=== PATIENT | female | born 1960 | race Caucasian/White ===

== ENCOUNTER 2017-09-22 14:51 | Inpatient (IN) | payer OTHER, SELFPAY ==
[2017-09-22 16:06] VITALS: BP 130/66; PULSE 103; RESP 18; TEMP 36.9; O2SAT 96; BMI 41.1
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
[2017-09-22] MEDS: oxyCODONE 5 MG Tablet PO (17:43)
[2017-09-22] MEDS: fentaNYL 25 MCG Patch TRANSDERM. (18:31)
--- NOTE | 2017-09-22 19:59 | NURSING ---
dr Hooper, Hospitalist, [place] [facility]
[2017-09-22 20:05] VITALS: BP 120/64; PULSE 94; RESP 18; TEMP 36.4; O2SAT 96
[2017-09-22 20:14] VITALS: BMI 41.1
[2017-09-22 20:18] VITALS: O2SAT 96
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
[2017-09-22] MEDS: Heparin Injection 5,000 UNITS/ML Syringe 5000 UNITS SC (20:34)
[2017-09-22] MEDS: Docusate Sodium 100 MG Capsule PO (20:35)
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
[2017-09-23] MEDS: oxyCODONE 5 MG Tablet PO ×4 (01:03→22:37)
[2017-09-23] MEDS: Heparin Injection 5,000 UNITS/ML Syringe 5000 UNITS SC ×3 (05:15→21:36)
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
[2017-09-23 06:07] LABS: Absolute Lymphocyte Count 2.31 X10^3/ul (0.83-4.51); Absolute Neutrophil Count 4.5 X10^3/uL (2.0-7.7); Basophil# 0.04 X10^3/uL; Basophil% 0.5 % (0-1); Eosinophil# 0.19 X10^3/uL; Eosinophils% 2.4 % (0-5); Hematocrit 32.3 % (37-47); Hemoglobin 10.5 g/dl (12.0-15.0); Lymphocyte # 2.31 X10^3/ul (4.0); Lymphocyte % 29.1 % (19-41); Mean Corp Hgb Conc 32.5 g/gl (32-36); Mean Corpuscular Hgb 29.6 pg (27.0-32.0); Mean Platelet Vol. 11.6 fl (6.2-12.0); Monocyte% 10.1 % (0-10); Neutrophil # 4.46 X10^3/uL (2.7-7.7); Neutrophil % 56.1 % (47-70); Platelet Count 234 K/mm3 (150-450); RBC Distribution Width CV 12.5 % (11.6-14.6); RBC Distribution Width SD 39.5 fl (35.1-43.9); Red Blood Count 3.55 M/mm3 (4.2-5.4); White Blood Count 7.9 K/mm3 (4.4-11.0)
[2017-09-23 06:22] LABS: POSITIVE COUNT NO; POSITIVE DIFFERENTIAL NO; POSITIVE MORPHOLOGY NO
[2017-09-23 06:25] LABS: ALB/GLOB Ratio 0.5 RATIO (0.9-2.4); AST(SGOT) 20 U/L (15-37); Alanine Aminotransfer ALT/SGPT 20 U/L (12-78); Albumin, Serum 2.2 g/dL (3.4-5.0); Alkaline Phosphatase 57 U/L (45-117); Anion Gap 9 (5-15); BUN 12 mg/dL (7-18); BUN/Creat Ratio 19.8 RATIO (10-20); Calcium,Total 8.7 mg/dL (8.5-10.1); Chloride 99 mmol/L (98-107); Creatinine, Serum 0.61 mg/dL (0.55-1.02); EST Glomerular Filtration Rate 107 mL/min (>60); Est Glom Filt Rate - Afr Amer 130 mL/min (>60); Estimated Creatinine Clearance 78.54 ml/min; Globulin 4.1 g/dL (2.2-4.2); Glucose 115 mg/dL (70-110); Magnesium 1.7 mg/dL (1.6-2.6); Phosphorus 2.8 mg/dL (2.5-4.9); Potassium 3.5 mmol/L (3.5-5.1); Protein, Total 6.3 g/dL (6.4-8.2); Sodium Level 139 mmol/L (136-145)
[2017-09-23 08:29] VITALS: O2SAT 96
[2017-09-23 09:05] VITALS: BP 118/72; PULSE 96; RESP 17; TEMP 36.4; O2SAT 96
[2017-09-23] MEDS: Divalproex (ER) 250 MG Tablet 1250 MG PO (09:08)
[2017-09-23] MEDS: Senna/Docusate Sodium 1 Tablet 2 TABLET PO ×2 (09:09→21:35)
[2017-09-23] MEDS: Polyethylene Glycol 3350 17 GM PACKET PO (09:09)
[2017-09-23] MEDS: Multivitamins,Ther W-Minerals Tablet 1 TABLET PO (09:09)
[2017-09-23] MEDS: Aspirin 81 MG TAB.CHEW PO (09:09)
[2017-09-23] MEDS: ESTROGENS, CONJUGATED 0.45 MG TABLET PO (10:14)
--- NOTE | 2017-09-23 10:45 | NURSING ---
Dr. Soriano aware of CXR report, no sob noted, oxygen is ordered at all times due to history of right pneumothorax, afebrile. will come assess patient.
--- NOTE | 2017-09-23 14:45 | NURSING ---
leave wrap and splint in place do not change.
--- NOTE | 2017-09-23 17:09 | REHABEVAL_ITS ---
Admission Information Status Changes from Prescreening?: No changes Identified Actual Problem List:: Skin Intergrity, Pain, ALteration in Cmfrt, Mobility Impaired, Self Care Deficit, Ineffect.D/C Plan r/t Psy Potential Problem List:: DVT, Bleeding, Infection, UTI, Aspiration, Falls, Skin Integrity, Depression Risk of Complications DVT: LMWH, SHRAVAN Hose, Sequential Compression Device Bleeding: Monitor Lab Values, Nursing to Teach Precautions for anti-coagulation therapy., Wound, if applicable, to be assessed every shift., Stroke patients assessed for lethargy or change in status. Infection: Clinical Staff to Monitor for S/S of infection:, S/S of infection include fever, redness, warmth, etc. Urinary Tract Infection: Monitor for frequency, burning, discomfort, or incontinence., Nursing will obtain urine sample for urinalysis and C&S when ordered. Aspiration: Clinical staff will monitor for coughing, drooling, congestion., Speech will evaluate swallowing and dsyphasia., Nursing will monitor patient swallowing during meals. Falls: Patient will be evaluated for Fall Precautions, Patient will be placed on Fall Precautions as indicated per protocol. Skin Breakdown: Nursing will assess skin daily using assessment tool., Nursing will place on Skin Breakdown Precautions as indicated. Pain: Clinical staff will assess patient's pain level per protocol., Medications will be given, if needed, and the pain level reassessed., Other methods: Massage, distraction, decrease stimulus, etc. used PRN. Plan of Care Patient requires physician specializing in physical medicine and rehab oversight to provide close medical supervision of rehab issues including: Pain Management, Sleep Problems, Bowel and Bladder, Medical and co-morbidity Management, DVT prophylaxis, Rehabilitation Leadership, Coordination of treatment team Patient needs Physical Therapy: For a minimum of 1 hour, At least 5 out of 7 days Patient needs Physical Therapy to improve:: Mobility, Mobility, Mobility, Strengthening, Transfers, Stretching, ROM, Endurance, Stairs, Gait, Balance Patient needs Occupational Therapy: For a minimum of 1 hour, At least 5 out of 7 days Patient needs Occupational Therapy to improve ADL's incl.: Eating, Grooming, Bathing, Dressing, Toileting, Toilet transfers, Community Reintegration, Higher functioning activities, Household tasks, Adaptive Equipment, Splinting, Other activities as determined Patient requires 24/ Rehabilitation Nursing for: Pain Issues, Identifying and preventing risk factors, Monitoring and reporting current medical conditions, Assisting with ambulation, transfer, and all ADL's, Teaching patients about disease process and medications, Family teaching, Providing safe environment, Bowel and Bladder Issues, Skin integrity, Medication Management Patient needs Technical Sales Director/ Case Management for: Discharge Planning, Arranging Home Equipment or Services, Family Interventions Patient needs Dietary and Nutrition Services for: Adequate Nutrition, Nutritional Supplements, Nutritional Education Goals Patient will remain: free from falls, or injury at time of discharge. Patient will perform bed mobility at: MOD I level of assist. Patient will complete transfers from bed to chair at: MOD I level of assist. Patient will ambulate: 100 feet, with MOD I assist, with LRD Patient will complete upper body dressing at: MOD I level of assist. Patient will complete lower body dressing at: MOD I level of assist. Patient will complete toileting at: MOD I level of assist. Patient will perform bathing at: MOD I level of assist. Patient will complete grooming at: MOD I level of assist. Patient will complete home management skills at: MOD I level of assist. Patient will achieve: 12 stairs, at MOD I assist Patient will have pain level of: of 3 or less Patient's skin will: remain intact, free from infection. Patient will receive: adequate nutrition. Discharge Planning Pt Prognosis for Sig. Practical Improv. w/in Reasonable Time: Good Anticipated D/C Destination: Home with Outpt Therapy Was Preadmission Assessment Accurate?: Yes
[2017-09-23 19:53] VITALS: BP 159/80; PULSE 89; RESP 16; TEMP 36.6; O2SAT 100
[2017-09-23] MEDS: Magnesium Hydroxide 30 ML UDC PO (20:49)
[2017-09-24] MEDS: oxyCODONE 5 MG Tablet PO ×3 (04:41→20:36)
[2017-09-24] MEDS: Bisacodyl 10 MG Suppository RECTAL (04:45)
[2017-09-24] MEDS: Heparin Injection 5,000 UNITS/ML Syringe 5000 UNITS SC ×2 (05:49→14:17)
[2017-09-24] MEDS: Senna/Docusate Sodium 1 Tablet 2 TABLET PO (08:57)
[2017-09-24] MEDS: ESTROGENS, CONJUGATED 0.45 MG TABLET PO (08:57)
[2017-09-24] MEDS: Aspirin 81 MG TAB.CHEW PO (08:57)
[2017-09-24] MEDS: Divalproex (ER) 250 MG Tablet 1250 MG PO (08:57)
[2017-09-24] MEDS: Polyethylene Glycol 3350 17 GM PACKET PO (08:57)
[2017-09-24] MEDS: Multivitamins,Ther W-Minerals Tablet 1 TABLET PO (08:57)
[2017-09-24 09:00] VITALS: BP 118/70; PULSE 89; RESP 16; TEMP 36.7; O2SAT 94
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
[2017-09-24 13:10] VITALS: O2SAT 97
[2017-09-24 13:23] VITALS: O2SAT 97
[2017-09-24] MEDS: Acetaminophen 325 MG Tablet 650 MG PO (20:37)
[2017-09-24 21:00] VITALS: BP 107/55; PULSE 90; RESP 18; TEMP 36.4; O2SAT 94
[2017-09-25] MEDS: Acetaminophen 325 MG Tablet 650 MG PO (05:58)
[2017-09-25] MEDS: oxyCODONE 5 MG Tablet PO ×2 (05:59→13:19)
[2017-09-25 06:30] VITALS: O2SAT 94
[2017-09-25 08:23] VITALS: BP 115/62; PULSE 80; RESP 16; TEMP 36.5; O2SAT 94
--- NOTE | 2017-09-25 08:49 | RAD_ITS ---
STUDY: X-RAY - RIGHT ANKLE REASON FOR EXAM: Female, 57 years old. Swelling and discoloration. No known injury. TECHNIQUE: 3 view(s) of the ankle. COMPARISON: None. FINDINGS: Normal visualized distal tibia and fibula. Normal medial and lateral malleoli. Normal tibiotalar articulation and ankle mortise. Normal visualized talus and calcaneus. The visualized subtalar, talonavicular, calcaneocuboid and tarsal articulations are normal. Diffuse soft tissue swelling. RAD/Ankle min 3 Views IMPRESSION: Diffuse soft tissue swelling. Electronically Signed: Sam Saldana MD at 10:41 EST Tel [phone], Service support ,
[2017-09-25] MEDS: Divalproex (ER) 250 MG Tablet 1250 MG PO (09:04)
[2017-09-25] MEDS: Senna/Docusate Sodium 1 Tablet 2 TABLET PO (09:04)
[2017-09-25] MEDS: Multivitamins,Ther W-Minerals Tablet 1 TABLET PO (09:04)
[2017-09-25] MEDS: Polyethylene Glycol 3350 17 GM PACKET PO (09:04)
[2017-09-25] MEDS: Aspirin 81 MG TAB.CHEW PO (09:05)
[2017-09-25] MEDS: ESTROGENS, CONJUGATED 0.45 MG TABLET PO (09:05)
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
[2017-09-25] MEDS: fentaNYL 25 MCG Patch TRANSDERM. (17:05)
[2017-09-25 19:57] VITALS: BP 118/67; PULSE 90; RESP 18; TEMP 36.3; O2SAT 95
--- NOTE | 2017-09-26 01:17 | NURSING ---
pt refused flu shot
[2017-09-26] MEDS: oxyCODONE 5 MG Tablet PO ×3 (06:54→20:34)
[2017-09-26] MEDS: Aspirin 81 MG TAB.CHEW PO (08:06)
[2017-09-26] MEDS: Multivitamins,Ther W-Minerals Tablet 1 TABLET PO (08:06)
[2017-09-26] MEDS: ESTROGENS, CONJUGATED 0.45 MG TABLET PO (08:06)
[2017-09-26] MEDS: Divalproex (ER) 250 MG Tablet 1250 MG PO (08:06)
[2017-09-26 08:36] VITALS: BP 140/73; PULSE 89; RESP 16; TEMP 36.4; O2SAT 95
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
[2017-09-26 19:23] VITALS: BP 115/64; PULSE 85; RESP 24; TEMP 36.7; O2SAT 94
[2017-09-27] MEDS: oxyCODONE 5 MG Tablet PO ×3 (05:39→20:59)
[2017-09-27] MEDS: Divalproex (ER) 250 MG Tablet 1250 MG PO (07:33)
[2017-09-27] MEDS: Multivitamins,Ther W-Minerals Tablet 1 TABLET PO (07:33)
[2017-09-27] MEDS: Aspirin 81 MG TAB.CHEW PO (07:33)
[2017-09-27] MEDS: ESTROGENS, CONJUGATED 0.45 MG TABLET PO (07:34)
[2017-09-27 07:40] VITALS: BP 124/69; PULSE 80; RESP 16; TEMP 36.4; O2SAT 95
[2017-09-27 15:30] VITALS: O2SAT 95
[2017-09-27 19:31] VITALS: BP 109/61; PULSE 87; RESP 16; TEMP 36.8; O2SAT 96
[2017-09-27 19:39] VITALS: O2SAT 95
[2017-09-28] MEDS: oxyCODONE 5 MG Tablet PO ×3 (06:04→20:43)
[2017-09-28 08:28] VITALS: BP 102/67; PULSE 105; RESP 17; TEMP 36.5; O2SAT 91
[2017-09-28] MEDS: Multivitamins,Ther W-Minerals Tablet 1 TABLET PO (08:29)
[2017-09-28] MEDS: Divalproex (ER) 250 MG Tablet 1250 MG PO (08:30)
[2017-09-28] MEDS: ESTROGENS, CONJUGATED 0.45 MG TABLET PO (08:30)
[2017-09-28] MEDS: Aspirin 81 MG TAB.CHEW PO (08:30)
[2017-09-28 09:36] VITALS: PULSE 105
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
--- NOTE | 2017-09-28 13:15 | CASEMGMT ---
Insurance Clinical information faxed. Pending continued stay approval at this time. Auth#[id number] Lilibeth ALVAREZ, SENIOR LINUX SYSTEMS ADMINISTRATOR
--- NOTE | 2017-09-28 13:16 | CASEMGMT ---
Team meeting held. Patient present as well as patient family. No discharge date set at this time. Patient to continue with further care and treatment on the Inpatient Rehab Unit at this time. Patient aware of insurance update due on this day and that continued stay approval is not guaranteed. Patient plans to discharge home with spouse at time of discharge. Patient spouse would not be able to manage patient needs within the home at this time. Support given. Will continue to follow. Lilibeth ALVAREZ, MEDICAL OFFICE COORDINATOR
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
[2017-09-28] MEDS: fentaNYL 25 MCG Patch TRANSDERM. (16:56)
[2017-09-28 19:58] VITALS: BP 120/65; PULSE 90; RESP 17; TEMP 36.8; O2SAT 93
[2017-09-28 22:00] VITALS: O2SAT 93
[2017-09-29] MEDS: Enoxaparin 40 MG/0.4 ML Syringe SC (06:41)
[2017-09-29] MEDS: oxyCODONE 5 MG Tablet PO (06:50)
[2017-09-29 07:00] VITALS: O2SAT 93
[2017-09-29] MEDS: ESTROGENS, CONJUGATED 0.45 MG TABLET PO (08:12)
[2017-09-29] MEDS: Multivitamins,Ther W-Minerals Tablet 1 TABLET PO (08:12)
[2017-09-29] MEDS: Divalproex (ER) 250 MG Tablet 1250 MG PO (08:12)
[2017-09-29] MEDS: Aspirin 81 MG TAB.CHEW PO (08:15)
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
[2017-09-29 09:40] VITALS: BP 122/67; PULSE 92; RESP 18; TEMP 36.4; O2SAT 93
[2017-09-29 21:00] VITALS: BP 120/63; PULSE 90; RESP 20; TEMP 36.6; O2SAT 3; O2SAT 95
--- NOTE | 2017-09-30 03:19 | NURSING ---
Reviewed and agree with DOG DAYCARE PROVIDER documentation.
[2017-09-30] MEDS: Enoxaparin 40 MG/0.4 ML Syringe SC (05:16)
[2017-09-30] MEDS: oxyCODONE 5 MG Tablet PO (05:18)
[2017-09-30] MEDS: Divalproex (ER) 250 MG Tablet 1250 MG PO (07:58)
[2017-09-30] MEDS: Aspirin 81 MG TAB.CHEW PO (07:58)
[2017-09-30] MEDS: Multivitamins,Ther W-Minerals Tablet 1 TABLET PO (07:58)
[2017-09-30] MEDS: ESTROGENS, CONJUGATED 0.45 MG TABLET PO (07:59)
[2017-09-30 09:48] VITALS: BP 115/63; PULSE 103; RESP 17; TEMP 36.4; O2SAT 97
--- NOTE | 2017-09-30 10:06 | PCM.PN.NEU ---
Patient Problems: Active and Suspected Problems Avulsion fracture of left ankle (Acute) Pneumothorax, right (Acute) Multiple fractures of ribs, right side, sequela (Acute) Subjective: Seen during Occupational therapy session. Denies any shortness of breath. Pain is well managed on current medications. - Physical Exam General: Alert, Oriented x3, Cooperative HEENT: Atraumatic, PERRLA, EOMI, Normocephalic Neck: Supple, No JVD, Negative Carotid Bruits Lungs: Clear to auscultation, Normal air movement Cardiovascular: Regular rate, No murmurs Abdomen: Bowel Sounds Present, Soft, Non Tender Extremities: No edema, Capillary Refill Less than 3 Seconds Skin: No rashes, No breakdown Musculoskeletal: No Tenderness to Palpation of Joints or Extremities Neurological: Cranial nerves II-XII grossly intact Psych/Mental Status: Normal Affect, Appropriate Vital Signs Temp Pulse Resp BP Pulse Ox 97.5 F L 103 H 17 115/63 97 09/30/17 09:48 09/30/17 09:48 09/30/17 09:48 09/30/17 09:48 09/30/17 09:48 Oxygen Flow Rate 3 Oxygen Delivery Method Nasal Cannula Weight: 104.4 kg Body Mass Index (BMI) 41.1 Intake and Output for Last 24 Hours 09/28/17 09/29/17 09/30/17 23:59 23:59 23:59 Intake Total 240 / 240 720 / 720 120 / 120 Balance 240 / 240 720 / 720 120 / 120 Active Medications Acetaminophen (Tylenol) 650 mg PO Q6H PRN PRN PRN Reason: Mild Pain (0-3/10)/Headache Last Admin: 09/25/17 05:58 Dose: 650 mg Aspirin (Aspirin, Baby) 81 mg PO DAILY@0800 [facility] Last Admin: 09/30/17 07:58 Dose: 81 mg Bisacodyl (Dulcolax) 10 mg RECTAL .PRN X 1 PRN PRN Reason: Constipation Last Admin: 09/24/17 04:45 Dose: 10 mg Divalproex Sodium (Depakote Er) 1,250 mg PO DAILY@0800 [facility] Last Admin: 09/30/17 07:58 Dose: 1,250 mg Enoxaparin Sodium (Lovenox) 40 mg SC DAILY@0600 [facility] Last Admin: 09/30/17 05:16 Dose: 40 mg Estrogens Conjugated (Premarin) 0.45 mg PO DAILY [facility] Last Admin: 09/30/17 07:59 Dose: 0.45 mg Fentanyl (Duragesic) 25 mcg TRANSDERM. Q3D [facility] Last Admin: 09/28/17 16:56 Dose: 25 mcg Lorazepam (Ativan) 0.5 mg PO QHS PRN PRN PRN Reason: Insomnia Magnesium Hydroxide (Milk Of Magnesia) 30 ml PO .PRN X 1 PRN PRN Reason: Constipation Last Admin: 09/23/17 20:49 Dose: 30 ml Multivitamins/Minerals (Multivitamin With Minerals) 1 tablet PO DAILY@0800 [facility] Last Admin: 09/30/17 07:58 Dose: 1 tablet Nutritional Formula (Lactose Free) (Ensure Enlive) 120 ml PO 4X/DAY [facility] Last Admin: 09/30/17 07:59 Dose: Not Given Oxycodone HCl (Oxyir) 5 - 10 mg PO Q6H PRN PRN PRN Reason: PAIN Last Admin: 09/30/17 05:18 Dose: 10 mg Polyethylene Glycol (Miralax) 17 gm PO DAILY [facility] Last Admin: 09/30/17 07:59 Dose: Not Given Senna/Docusate Sodium (Senokot-S, Anna-Colace) 2 tablet PO BID [facility] Last Admin: 09/30/17 07:59 Dose: Not Given Assessment/Plan Active and Suspected Problems Avulsion fracture of left ankle (Acute) Pneumothorax, right (Acute) Multiple fractures of ribs, right side, sequela (Acute) Debility status post ORIF to left ankle avulsion fracture with bone and skin grafting. Complicated by by Right Pneumothorax, and Multiple Right sided rib fx 4 through 8. Goal of rehab is jain of prior level of functional independence. Plan: - Physical therapy for gait and balance - Occupational Therapy for ADLs - As needed analgesics - Bowel protocol - DVT prophylaxis: Lovenox 40mg daily ASA, SCD's right leg, and Lance hoses right leg - Hx of Hormone replacement therapy -> Continue home dose of Premarin - Hx of Seizures -> continue Depakote ER 1250mg Daily - Multiple Right Rib Fractures (4-8) -> IS every hour while awake, Lidoderm patch to affected area - Right Pneumothorax -> Keep on O2, 2 Liters [place]. at all times, Maintain O2 SATs greater than 95% - Incision Site -> Dressing is C/D/I - Right ankle pain => 3 view X-ray of ankle => shows Diffuse soft tissue swelling, do R.I.C.E. therapy on the area. - Weight bearing status => Non weight bearing on the Left lower extremity.
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
[2017-09-30 16:19] VITALS: O2SAT 99
--- NOTE | 2017-09-30 16:48 | CASEMGMT ---
Insurance Continued stay approved with next update due on 10/05/17 and last cover day being 10/06/17. Auth#[id number] Lilibeth ALVAREZ, FILTERS ASSEMBLER
[2017-09-30 20:10] VITALS: BP 114/61; PULSE 86; RESP 20; TEMP 36.6; O2SAT 95
[2017-09-30] MEDS: Acetaminophen 325 MG Tablet 650 MG PO (21:14)
[2017-10-01] MEDS: oxyCODONE 5 MG Tablet PO (05:18)
[2017-10-01] MEDS: Enoxaparin 40 MG/0.4 ML Syringe SC (05:20)
[2017-10-01] MEDS: Divalproex (ER) 250 MG Tablet 1250 MG PO (07:44)
[2017-10-01] MEDS: Multivitamins,Ther W-Minerals Tablet 1 TABLET PO (07:45)
[2017-10-01] MEDS: Aspirin 81 MG TAB.CHEW PO (07:45)
[2017-10-01] MEDS: ESTROGENS, CONJUGATED 0.45 MG TABLET PO (07:46)
[2017-10-01 09:52] VITALS: BP 123/67; PULSE 77; RESP 16; TEMP 36.4; O2SAT 96
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
[2017-10-01] MEDS: fentaNYL 25 MCG Patch TRANSDERM. (16:47)
[2017-10-01] MEDS: Acetaminophen 325 MG Tablet 650 MG PO (21:29)
[2017-10-01 21:49] VITALS: BP 123/61; PULSE 86; RESP 14; TEMP 36.4; O2SAT 93
[2017-10-02] MEDS: Enoxaparin 40 MG/0.4 ML Syringe SC (05:16)
[2017-10-02] MEDS: Divalproex (ER) 250 MG Tablet 1250 MG PO (08:19)
[2017-10-02] MEDS: Aspirin 81 MG TAB.CHEW PO (08:19)
[2017-10-02] MEDS: Multivitamins,Ther W-Minerals Tablet 1 TABLET PO (08:19)
[2017-10-02] MEDS: oxyCODONE 5 MG Tablet PO (08:19)
[2017-10-02] MEDS: ESTROGENS, CONJUGATED 0.45 MG TABLET PO (08:20)
[2017-10-02 09:46] VITALS: BP 119/64; PULSE 79; RESP 18; TEMP 36.5; O2SAT 79
[2017-10-02 13:10] VITALS: O2SAT 90
--- NOTE | 2017-10-02 14:30 | CASEMGMT ---
Social Work Staff reporting that patient has been tearful. This social worker assistant speaking with patient in room. Patient reporting to be missing home. Patient wanting to return home but aware that patient is unable to return home at this time. Supportive counseling given. Patient reporting that care has been good and that there is nothing else the staff could be doing further at this time. Patient plans to discharge home with spouse and was tearful during the conversation but able to collect self and collaborate with this social worker assistant on a discharge plan as well as plan for patient mental health during stay on the Inpatient Rehab Unit. Patient spouse plans to stop by [facility] to look into portable ramps to have one set up for patient to enter the home. Patent plans to keep in contact with team about current mood. Support given. Will continue to follow. Lilibeth ALVAREZ, GROUND SUPPORT EQUIPMENT MECHANIC
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
[2017-10-02] MEDS: Senna/Docusate Sodium 1 Tablet 2 TABLET PO (20:36)
[2017-10-02 20:58] VITALS: BP 121/70; PULSE 80; RESP 14; TEMP 36.8; O2SAT 96
[2017-10-02 20:59] VITALS: RESP 14; O2SAT 96
[2017-10-02] MEDS: Acetaminophen 325 MG Tablet 650 MG PO (22:09)
--- NOTE | 2017-10-03 01:31 | NURSING ---
Reviewed and agree with LPNs fims and handoff
[2017-10-03] MEDS: Enoxaparin 40 MG/0.4 ML Syringe SC (05:28)
[2017-10-03] MEDS: Acetaminophen 325 MG Tablet 650 MG PO (05:28)
[2017-10-03 06:54] VITALS: O2SAT 95
[2017-10-03 08:32] VITALS: BP 113/65; PULSE 61; RESP 17; TEMP 36.3; O2SAT 96
[2017-10-03] MEDS: Divalproex (ER) 250 MG Tablet 1250 MG PO (10:04)
[2017-10-03] MEDS: ESTROGENS, CONJUGATED 0.45 MG TABLET PO (10:05)
[2017-10-03] MEDS: Multivitamins,Ther W-Minerals Tablet 1 TABLET PO (10:05)
[2017-10-03] MEDS: Aspirin 81 MG TAB.CHEW PO (10:05)
[2017-10-03 19:58] VITALS: BP 122/73; PULSE 77; RESP 18; TEMP 36.5; O2SAT 100
[2017-10-03 22:00] VITALS: O2SAT 98
[2017-10-04] MEDS: Enoxaparin 40 MG/0.4 ML Syringe SC (05:30)
[2017-10-04 06:32] VITALS: O2SAT 98
[2017-10-04] MEDS: ESTROGENS, CONJUGATED 0.45 MG TABLET PO (08:34)
[2017-10-04] MEDS: Aspirin 81 MG TAB.CHEW PO (08:34)
[2017-10-04] MEDS: Divalproex (ER) 250 MG Tablet 1250 MG PO (08:34)
[2017-10-04] MEDS: Multivitamins,Ther W-Minerals Tablet 1 TABLET PO (08:34)
[2017-10-04] MEDS: oxyCODONE 5 MG Tablet PO (08:38)
[2017-10-04 08:42] VITALS: BP 122/70; PULSE 78; RESP 17; TEMP 36.7; O2SAT 97
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
[2017-10-04] MEDS: fentaNYL 25 MCG Patch TRANSDERM. (18:17)
[2017-10-04 20:45] VITALS: BP 144/72; PULSE 85; RESP 18; TEMP 36.8; O2SAT 92
[2017-10-04 22:00] VITALS: O2SAT 93
[2017-10-05] MEDS: Enoxaparin 40 MG/0.4 ML Syringe SC (06:20)
[2017-10-05] MEDS: oxyCODONE 5 MG Tablet PO (06:20)
[2017-10-05 07:02] VITALS: O2SAT 96
[2017-10-05 07:23] VITALS: BP 137/68; PULSE 86; RESP 17; TEMP 36.6; O2SAT 93
[2017-10-05] MEDS: Divalproex (ER) 250 MG Tablet 1250 MG PO (09:14)
[2017-10-05] MEDS: Aspirin 81 MG TAB.CHEW PO (09:14)
[2017-10-05] MEDS: ESTROGENS, CONJUGATED 0.45 MG TABLET PO (09:15)
[2017-10-05] MEDS: Multivitamins,Ther W-Minerals Tablet 1 TABLET PO (09:15)
--- NOTE | 2017-10-05 12:28 | CASEMGMT ---
Team meeting held. Patient present as well as patient family. No discharge date set at this time. Patient plans to discharge home with spouse at time of discharge. Patient spouse reporting to plan to met with [facility] today to get a lift chair, ramp and bedside commode. Patient aware of insurance update due on this day. Team would like to continue with patient at this time. Support given. Will continue to follow. Lilibeth ALVAREZ, MICA WASHER GLUER
--- NOTE | 2017-10-05 12:29 | CASEMGMT ---
Insurance Clinicals faxed. Pending continued stay approval at this time. Auth#[id number] Lilibeth ALVAREZ, PARALLEL COMPUTING SOFTWARE ENGINEER
--- NOTE | 2017-10-05 14:09 | CASEMGMT ---
Insurance Continued stay approved with next update due on 10/12/17. Auth#[id number] Lilibeth ALVAREZ, GRAVEL SCREENER
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
[2017-10-05 22:00] VITALS: PULSE 87; O2SAT 94
--- NOTE | 2017-10-06 01:57 | NURSING ---
Reviewed and agree with [employer] documentation.
[2017-10-06] MEDS: Enoxaparin 40 MG/0.4 ML Syringe SC (05:22)
[2017-10-06] MEDS: oxyCODONE 5 MG Tablet PO (05:29)
[2017-10-06 06:30] VITALS: O2SAT 95
[2017-10-06 08:57] VITALS: BP 144/74; PULSE 86; RESP 16; TEMP 36.5; O2SAT 91
[2017-10-06] MEDS: Divalproex (ER) 250 MG Tablet 1250 MG PO (12:02)
[2017-10-06] MEDS: Multivitamins,Ther W-Minerals Tablet 1 TABLET PO (12:02)
[2017-10-06] MEDS: ESTROGENS, CONJUGATED 0.45 MG TABLET PO (12:02)
[2017-10-06] MEDS: Aspirin 81 MG TAB.CHEW PO (12:02)
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
[2017-10-06 19:47] VITALS: BP 130/65; PULSE 80; RESP 12; TEMP 36.6; O2SAT 93
[2017-10-07] MEDS: Enoxaparin 40 MG/0.4 ML Syringe SC (06:03)
[2017-10-07] MEDS: Divalproex (ER) 250 MG Tablet 1250 MG PO (07:35)
[2017-10-07] MEDS: Multivitamins,Ther W-Minerals Tablet 1 TABLET PO (07:36)
[2017-10-07] MEDS: Aspirin 81 MG TAB.CHEW PO (07:36)
[2017-10-07] MEDS: ESTROGENS, CONJUGATED 0.45 MG TABLET PO (07:36)
[2017-10-07 08:00] VITALS: O2SAT 94
[2017-10-07 08:23] VITALS: BP 123/67; PULSE 77; RESP 16; TEMP 36.3; O2SAT 95
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
[2017-10-07] MEDS: oxyCODONE 5 MG Tablet PO (12:23)
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
--- NOTE | 2017-10-07 17:15 | NURSING ---
Returned from dr ly.
[2017-10-07] MEDS: fentaNYL 25 MCG Patch TRANSDERM. (17:56)
[2017-10-07 19:33] VITALS: BP 124/70; PULSE 83; RESP 16; TEMP 36.4; O2SAT 94
[2017-10-07] MEDS: Acetaminophen 325 MG Tablet 650 MG PO (20:53)
[2017-10-08] MEDS: Enoxaparin 40 MG/0.4 ML Syringe SC (05:42)
[2017-10-08] MEDS: Divalproex (ER) 250 MG Tablet 1250 MG PO (08:37)
[2017-10-08] MEDS: Aspirin 81 MG TAB.CHEW PO (08:37)
[2017-10-08] MEDS: Multivitamins,Ther W-Minerals Tablet 1 TABLET PO (08:37)
[2017-10-08] MEDS: ESTROGENS, CONJUGATED 0.45 MG TABLET PO (08:38)
[2017-10-08 10:00] VITALS: BP 122/70; PULSE 82; RESP 17; TEMP 36.4; O2SAT 94
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
[2017-10-08 19:55] VITALS: BP 123/66; PULSE 85; RESP 18; TEMP 36.7; O2SAT 95
[2017-10-09] MEDS: Enoxaparin 40 MG/0.4 ML Syringe SC (05:29)
[2017-10-09] MEDS: Divalproex (ER) 250 MG Tablet 1250 MG PO (08:35)
[2017-10-09] MEDS: Multivitamins,Ther W-Minerals Tablet 1 TABLET PO (08:36)
[2017-10-09] MEDS: ESTROGENS, CONJUGATED 0.45 MG TABLET PO (08:36)
[2017-10-09] MEDS: Aspirin 81 MG TAB.CHEW PO (08:36)
[2017-10-09 09:40] VITALS: BP 124/65; PULSE 79; RESP 18; TEMP 36.6; O2SAT 100
[2017-10-09 19:26] VITALS: BP 125/77; PULSE 86; RESP 16; TEMP 36.8; O2SAT 95
[2017-10-10] MEDS: Enoxaparin 40 MG/0.4 ML Syringe SC (06:20)
[2017-10-10 07:49] VITALS: BP 128/62; PULSE 76; RESP 18; TEMP 36.9; O2SAT 95
[2017-10-10] MEDS: Multivitamins,Ther W-Minerals Tablet 1 TABLET PO (08:03)
[2017-10-10] MEDS: Divalproex (ER) 250 MG Tablet 1250 MG PO (08:03)
[2017-10-10] MEDS: ESTROGENS, CONJUGATED 0.45 MG TABLET PO (08:03)
[2017-10-10] MEDS: Aspirin 81 MG TAB.CHEW PO (08:03)
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
--- NOTE | 2017-10-10 17:57 | NURSING ---
pt returned to the unit
[2017-10-10] MEDS: fentaNYL 25 MCG Patch TRANSDERM. (18:10)
[2017-10-10 18:40] VITALS: BP 130/70; PULSE 83; RESP 18; TEMP 36.7; O2SAT 96
--- NOTE | 2017-10-10 23:08 | NURSING ---
c/o left great toe pain. Toenail is curving inward. Unable to trim at this time. Will need to address
[2017-10-11] MEDS: Enoxaparin 40 MG/0.4 ML Syringe SC (06:31)
[2017-10-11 07:32] VITALS: BP 116/61; PULSE 75; RESP 18; TEMP 36.3; O2SAT 93
[2017-10-11] MEDS: ESTROGENS, CONJUGATED 0.45 MG TABLET PO (07:51)
[2017-10-11] MEDS: Multivitamins,Ther W-Minerals Tablet 1 TABLET PO (07:51)
[2017-10-11] MEDS: Divalproex (ER) 250 MG Tablet 1250 MG PO (07:51)
[2017-10-11] MEDS: Aspirin 81 MG TAB.CHEW PO (07:51)
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
--- NOTE | 2017-10-11 14:22 | NURSING ---
patient wheeling self in w/c > 150 ft x supervision and now in dining area with family visiting.
[2017-10-11 21:59] VITALS: BP 108/63; PULSE 83; RESP 18; TEMP 36.6; O2SAT 94
[2017-10-11 22:00] VITALS: PULSE 83; RESP 18; O2SAT 94
[2017-10-12] MEDS: Enoxaparin 40 MG/0.4 ML Syringe SC (05:34)
[2017-10-12 06:06] LABS: Absolute Lymphocyte Count 1.76 X10^3/ul (0.83-4.51); Basophil# 0.04 X10^3/uL; Basophil% 0.9 % (0-1); Eosinophil# 0.21 X10^3/uL; Eosinophils% 4.7 % (0-5); Hematocrit 36.2 % (37-47); Hemoglobin 11.3 g/dl (12.0-15.0); Lymphocyte # 1.76 X10^3/ul (4.0); Lymphocyte % 39.5 % (19-41); Mean Corp Hgb Conc 31.2 g/gl (32-36); Mean Corpuscular Hgb 28.9 pg (27.0-32.0); Mean Corpuscular Volume 92.6 fL (81-99); Mean Platelet Vol. 11.9 fl (6.2-12.0); Monocyte# 0.44 X10^3/uL; Monocyte% 9.9 % (0-10); Neutrophil # 1.99 X10^3/uL (2.7-7.7); Neutrophil % 44.6 % (47-70); Platelet Count 260 K/mm3 (150-450); RBC Distribution Width CV 13.2 % (11.6-14.6); RBC Distribution Width SD 43.7 fl (35.1-43.9); Red Blood Count 3.91 M/mm3 (4.2-5.4); White Blood Count 4.5 K/mm3 (4.4-11.0)
[2017-10-12 06:10] LABS: Anion Gap 8 (5-15); BUN 12 mg/dL (7-18); BUN/Creat Ratio 18.7 RATIO (10-20); Calcium,Total 8.7 mg/dL (8.5-10.1); Chloride 105 mmol/L (98-107); Creatinine, Serum 0.64 mg/dL (0.55-1.02); EST Glomerular Filtration Rate 101 mL/min (>60); Est Glom Filt Rate - Afr Amer 122 mL/min (>60); Estimated Creatinine Clearance 74.86 ml/min; Glucose 88 mg/dL (74-106); Potassium 4.1 mmol/L (3.5-5.1); Sodium Level 142 mmol/L (136-145)
[2017-10-12 06:31] LABS: POSITIVE COUNT NO; POSITIVE DIFFERENTIAL NO; POSITIVE MORPHOLOGY NO
[2017-10-12] MEDS: ESTROGENS, CONJUGATED 0.45 MG TABLET PO (07:20)
[2017-10-12] MEDS: Aspirin 81 MG TAB.CHEW PO (07:20)
[2017-10-12] MEDS: Multivitamins,Ther W-Minerals Tablet 1 TABLET PO (07:21)
[2017-10-12 07:23] VITALS: BP 117/62; PULSE 75; RESP 17; TEMP 36.5; O2SAT 96
[2017-10-12] MEDS: Divalproex (ER) 250 MG Tablet 1250 MG PO (07:51)
--- NOTE | 2017-10-12 10:36 | CASEMGMT ---
Team meeting held. Patient present as well as patient spouse. Collaborating with team and patient, discharge date has been set for 10/13/17. Patient plans to discharge home with spouse. Physical therapy recommending for patient to have continued services within the home. Patient is agreeable to home health care and requesting for home health services to be set up through [facility] ([facility]). Patient reporting to have all needed durable medical equipment except for a wheelchair. Patient requesting for wheelchair to be ordered through [facility]. Patient spouse plans to provide transportation home for patient at time of discharge. Patient identifying no further discharge needs at this time. Support given. Telephone call to [facility], Clemencia. This social welfare research worker making referral for physical therapy. Order faxed. Order for wheelchair and clinical information faxed to [facility]. Proposed discharge date: 10/13/17 PLAN: Discharge home with spouse and home health services. Lilibeth ALVAREZ, JEANMARIE
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
[2017-10-12 20:25] VITALS: BP 125/63; PULSE 82; RESP 17; TEMP 36.8; O2SAT 96
[2017-10-13] MEDS: Enoxaparin 40 MG/0.4 ML Syringe SC (05:44)
[2017-10-13 07:52] VITALS: BP 119/66; PULSE 74; RESP 17; TEMP 36.8; O2SAT 93
[2017-10-13] MEDS: Divalproex (ER) 250 MG Tablet 1250 MG PO (08:30)
[2017-10-13] MEDS: Multivitamins,Ther W-Minerals Tablet 1 TABLET PO (08:30)
[2017-10-13] MEDS: Aspirin 81 MG TAB.CHEW PO (08:30)
[2017-10-13] MEDS: ESTROGENS, CONJUGATED 0.45 MG TABLET PO (08:31)
[2017-10-13 09:14] VITALS: BP 119/66; PULSE 75; RESP 17; TEMP 36.8; O2SAT 93
[2017-10-13] MEDS: fentaNYL 25 MCG Patch TRANSDERM. (10:21)
--- NOTE | 2017-10-13 10:28 | NURSING ---
Went over dc instructions, medications and appts. pt verbalized understanding, pt discharge with spouse with all personal belongings in hand.
--- NOTE | 2017-10-13 10:58 | NURSING ---
removed fentanyl patch from L shoulder blade. put in sharps container in med room. Helena Patrick LPN witnessed.
--- NOTE | 2017-10-13 13:15 | CASEMGMT ---
Insurance Notified patient insurance of patient discharge on 10/13/17 to home with spouse and home health services. Auth#[id number] Lilibeth ALVAREZ, SENIOR CLINICAL [employer] PROGRAMMER
== END 2017-10-13 10:30 | disposition home health service (06) | DRG 561 ==
PROVIDERS: Nurse Practitioner Acute Care; Admitting Provider Psychiatry & Neurology Neurology; Family Provider Family Medicine; PCP Family Medicine; Visit Provider Internal Medicine
DX: S82.841D Displaced bimalleolar fracture of right lower leg, subsequent encounter for closed fracture with routine healing (principal); G40.909 Epilepsy, unspecified, not intractable, without status epilepticus; S22.41XD Multiple fractures of ribs, right side, subsequent encounter for fracture with routine healing; S27.0XXD Traumatic pneumothorax, subsequent encounter; K59.00 Constipation, unspecified; V43.52XD Car driver injured in collision with other type car in traffic accident, subsequent encounter; Z81.8 Family history of other mental and behavioral disorders; Z79.899 Other long term (current) drug therapy; Z79.82 Long term (current) use of aspirin; Z79.890 Hormone replacement therapy
CPT/HCPCS: 36415; 71045; 73610; 80048; 80053; 82306; 83735; 84100; 85025; 97110; 97116; 97163; 97166; 97530; 97535

== ENCOUNTER 2017-10-20 09:29 | Inpatient (IN) | payer OTHER, SELFPAY ==
[2017-10-20] VITALS (14 sets, daily range): BP systolic 101–144; BP diastolic 52–87; PULSE 109–127; RESP 16–24; TEMP 36.2–37.1; O2SAT 93–97; BMI 4198.5; BMI 39.8
--- NOTE | 2017-10-20 10:01 | EKG12_ITS ---
Test Reason : SOB Blood Pressure : / mmHG Vent. Rate : 130 BPM Atrial Rate : 130 BPM P-R Int : 140 ms QRS Dur : 080 ms QT Int : 384 ms P-R-T Axes : 050 058 059 degrees QTc Int : 565 ms Sinus tachycardia Nonspecific ST and T wave abnormality Abnormal ECG Confirmed by BARON RIOS ([id number]), senior technical editor ALENA ANN ([id number] on 10/22/2017 3:00:10 PM Referred By: JOEY/MARAL Confirmed By:BARON RIOS
--- NOTE | 2017-10-20 10:04 | CT_ITS ---
STUDY: CTA CHEST REASON FOR EXAM: Female, 57 years old. Shortness of breath upon exertion. History of recent ankle surgery and multiple rib fractures and right pneumothorax. RADIATION DOSAGE (If Supplied By Facility): CTDIvol = ( 18.16 ) mGy, DLP = ( 659.96 ) mGycm TECHNIQUE: The examination was performed with the intravenous administration of 100 ml of Isovue 370 contrast material. Post-processing of the angiographic images was performed, with multiplanar reformation and 3D reconstruction. Individualized dose optimization techniques were used for this CT. COMPARISON: Comparison is made with prior examination dated September 18, 2017. FINDINGS: There is evidence of a multiple bilateral intraluminal filling defects in the bilateral pulmonary arteries and pulmonary arterial branches in the mid and lower lung kramer. The thrombus extends into the distal portions of both the left and right pulmonary arteries worse on the left side. This is in keeping with extensive bilateral pulmonary emboli. Normal thoracic aorta and visualized great vessels. There is no demonstrated aortic dissection. Normal heart and pericardium. Normal mediastinum. Normal hilar regions. Normal visualized trachea and bronchi. The lungs are well expanded. Small right pleural effusion with underlying infiltration and/or atelectasis. Normal chest wall structures. There are degenerative changes of thoracic spine. The patient is status post cholecystectomy. CT/CTA Chest W/WO Contrast IMPRESSION: Extensive bilateral pulmonary embolism. Small right pleural effusion with underlying infiltration and/or atelectasis. N.B. : The above information has been verbally conveyed by Sam Saldana MD to Jose Antonio Weiss on 10/20/2017 10:55:21 (ET). Electronically Signed: Sam Saldana MD at 10:55 EST Tel [phone], Service support , N.B. : The above information has been verbally conveyed by Sam Saldana MD to Jose Antonio Weiss on 10/20/2017 10:55:21 (ET).
[2017-10-20 10:23] LABS: Absolute Lymphocyte Count 2.08 X10^3/ul (0.83-4.51); Absolute Neutrophil Count 8.6 X10^3/uL (2.0-7.7); Basophil# 0.03 X10^3/uL; Basophil% 0.3 % (0-1); Eosinophils% 0.9 % (0-5); Hematocrit 43.4 % (37-47); Hemoglobin 13.9 g/dl (12.0-15.0); Lymphocyte # 2.08 X10^3/ul (4.0); Lymphocyte % 17.9 % (19-41); Mean Corpuscular Hgb 28.7 pg (27.0-32.0); Mean Corpuscular Volume 89.5 fL (81-99); Mean Platelet Vol. 12.5 fl (6.2-12.0); Monocyte# 0.83 X10^3/uL; Monocyte% 7.1 % (0-10); Neutrophil # 8.56 X10^3/uL (2.7-7.7); Neutrophil % 73.5 % (47-70); Platelet Count 206 K/mm3 (150-450); RBC Distribution Width CV 13.1 % (11.6-14.6); RBC Distribution Width SD 42.2 fl (35.1-43.9); Red Blood Count 4.85 M/mm3 (4.2-5.4); White Blood Count 11.6 K/mm3 (4.4-11.0)
[2017-10-20 10:24] LABS: POSITIVE COUNT NO; POSITIVE DIFFERENTIAL NO; POSITIVE MORPHOLOGY NO
[2017-10-20 10:34] LABS: Anion Gap 9 (5-15); BUN 11 mg/dL (7-18); BUN/Creat Ratio 12.6 RATIO (10-20); Chloride 104 mmol/L (98-107); Creatinine, Serum 0.87 mg/dL (0.55-1.02); EST Glomerular Filtration Rate 71 mL/min (>60); Est Glom Filt Rate - Afr Amer 85 mL/min (>60); Estimated Creatinine Clearance 107.19 ml/min; Glucose 151 mg/dL (74-106); Potassium 3.8 mmol/L (3.5-5.1); Sodium Level 139 mmol/L (136-145)
--- NOTE | 2017-10-20 10:34 | NURSING ---
TROPONIN 1.26 DR PHAN
--- NOTE | 2017-10-20 10:37 | NURSING ---
[id number] HENDERSON THROUGH HIS CELL [id number] HENDERSON'S OFFICE,
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
--- NOTE | 2017-10-20 11:00 | NURSING ---
DR MOTTA FOR DR ALICIA
--- NOTE | 2017-10-20 11:00 | NURSING ---
PCU ACUTE PULONARY EMBOLISM, ELEVATED TROPONIN ASHELFAH
[2017-10-20] MEDS: Enoxaparin 100 MG/ML Syringe SC (11:48)
[2017-10-20] MEDS: 0.9% Normal Saline 1,000 ML 1000 ML IV (11:50)
[2017-10-20 12:05] LABS: International Normalized Ratio 1.1; Prothrombin Time (Protime)PT. 14.2 SECONDS (11.7-14.9)
--- NOTE | 2017-10-20 12:08 | ECHOD_ITS ---
Reason For Study: EMBOLI Procedure This was a limited 2D transthoracic echocardiogram. Technically difficult apical windows due to body habitus. LTD IMAGES OBTAINED*pt could not tolerate apical and subcostal window imaging due to chest pain. Limited views were obtained. Exam performed portable in patient room. Left Ventricle Normal size and thickness. D shaped septum in diastole. The estimated ejection fraction is 75 %. No regional wall motion abnormalities noted. Right Ventricle Severely dilated right ventricle. Moderately severe global right ventricular systolic dysfunction. Atria Normal right atrium. Normal atrial septum. Mitral Valve The mitral valve is structurally normal. No prolapse or stenosis seen. Tricuspid Valve Normal tricuspid valve. Mild (1+) tricuspid valve insufficiency. Right ventricular systolic pressure estimated to be 52 mmHg. Moderate pulmonary hypertension. Aortic Valve Trisinus/trileaflet aortic valve. Normal aortic valve. Pulmonic Valve Normal pulmonic valve. Mild (1+) pulmonic valve insufficiency. Great Vessels Normal aortic root. Normal arch. Pericardium/Pleural No pericardial effusion. MMode/2D Measurements & Calculations LVIDd: 2.5 cm IVSd: 1.2 cm Ao root diam: 3.2 cm LVIDs: 1.6 cm LVPWd: 1.2 cm LA dimension: 3.5 cm RVDd: 4.0 cm FS: 37.8 % RA A4 area: 16.1 cm2 Doppler Measurements & Calculations PA V2 max: 84.6 cm/sec TR max jared: 341.3 cm/sec TR max P.6 mmHg Interpretation Summary The estimated ejection fraction is 75 %. Severely dilated right ventricle. Moderately severe global right ventricular systolic dysfunction. D shaped septum in diastole. Normal size and thickness. Mild (1+) tricuspid valve insufficiency. Right ventricular systolic pressure estimated to be 52 mmHg. Moderate pulmonary hypertension. There is no comparison study available. Ordering Physician: Marcelino Velázquez Referring Physician: FRITZ PENN Performed By: Olivia Ortega RDCS, RVT
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
[2017-10-20] MEDS: HEPARIN/D5w 25,000 UNITS 25,000 UNITS/250 ML IV.SOLN. 14 UNITS IV (13:01)
[2017-10-20 13:03] LABS: Partial Thromboplast Time 33.3 Seconds (24.1-36.2)
[2017-10-20] MEDS: Acetaminophen 325 MG Tablet 650 MG PO ×2 (14:34→21:18)
--- NOTE | 2017-10-20 14:53 | NURSING ---
NGUYỄN,CEMENT SACK BREAKER NOTIFIED TROP=1.39. NGUYỄN REPORTS SHE WILL TEXT DR MOTTA TO NOTIFY.
--- NOTE | 2017-10-20 16:30 | NURSING ---
this rn picking up this patient
--- NOTE | 2017-10-20 17:12 | VDLE_ITS ---
Reason For Study: Pulmonary Embolism RIGHT LEFT GSV is normal. GSV is normal. CFV is compressible, spontaneous, phasic, Lt CFV is partially compressible and dilated competent and demonstrates normal consistent with acute DVT, DVT is UNSTABLE augmentation. PTV is compressible. Lt FV distal, Lt PopV, T/P trunk, and Lt Rt FV distal, Rt PopV, Rt T/P trunk, Rt GastrocV are dilated and non compressible GastrocV, and Rt PeroV are dilated and non consistent with acute DVT compressible consistent with acute DVT Lt PTV and Lt PeroV not visualized due to Rt FV distal/Rt PopV DVT is UNSTABLE. cast. Procedure Exam performed portable in patient room. The study was technically difficult. Pt unable to tolerate compressions throughout thigh bilaterally, relied on color doppler Pulsatile venous flow noted. A preliminary report was called and/or faxed to Naomi ALANIS, Dr. Valencia. Interpretation Summary Acute deep vein thrombosis is noted in the right femoral vein. Acute deep vein thrombosis is noted in the right popliteal vein. Acute deep vein thrombosis is noted in the right tibio-peroneal trunk. Acute deep vein thrombosis is noted in the right peroneal vein. Acute deep vein thrombosis is noted in the right gastrocnemius vein. The right common femoral vein is patent, compressible, and competent. Acute deep vein thrombosis is noted in the left common femoral vein. Acute deep vein thrombosis is noted in the left femoral vein. Acute deep vein thrombosis is noted in the left popliteal vein. Acute deep vein thrombosis is noted in the left tibio-peroneal trunk. Acute deep vein thrombosis is noted in the left gastrocnemius vein. The left posterior tibial vein and peroneal vein were not visualized due to the presence of a cast. The great saphenous veins are patent and compressible bilaterally. Pulsatile flow is noted in the deep venous system bilaterally, which may be indicative of elevated central venous pressure (i.e. congestive heart failure, tricuspid valve insufficiency, etc.). Clinical correlation is advised. Ordering Physician: Tyson Valencia Referring Physician: Kamila Foster Performed By: Aminta Wiley, MINNIE, RVT
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
[2017-10-20 18:32] LABS: Cholesterol 186 mg/dL (200); High Density Lipoprotein 60 mg/dL; Triglycerides 165 mg/dL; Very Low Density Lipoprotein 33 mg/dL (5-40)
[2017-10-20 21:10] LABS: Partial Thromboplast Time 94.4 Seconds (24.1-36.2)
[2017-10-20] MEDS: Divalproex (ER) 250 MG Tablet 1250 MG PO (21:19)
[2017-10-20] MEDS: 0.9% Normal Saline 1,000 ML 75 ML IV (22:38)
[2017-10-21] VITALS (11 sets, daily range): BP systolic 102–140; BP diastolic 60–65; PULSE 89–105; RESP 18; TEMP 36.4–36.9; O2SAT 92–97
[2017-10-21 03:37] LABS: Absolute Lymphocyte Count 1.86 X10^3/ul (0.83-4.51); Absolute Neutrophil Count 5.6 X10^3/uL (2.0-7.7); Basophil# 0.04 X10^3/uL; Basophil% 0.5 % (0-1); Eosinophil# 0.09 X10^3/uL; Eosinophils% 1.1 % (0-5); Hematocrit 38.4 % (37-47); Lymphocyte # 1.86 X10^3/ul (4.0); Lymphocyte % 22.2 % (19-41); Mean Corp Hgb Conc 31.3 g/gl (32-36); Mean Corpuscular Hgb 28.2 pg (27.0-32.0); Mean Corpuscular Volume 90.4 fL (81-99); Mean Platelet Vol. 12.8 fl (6.2-12.0); Monocyte# 0.75 X10^3/uL; Neutrophil # 5.61 X10^3/uL (2.7-7.7); Neutrophil % 67.1 % (47-70); Platelet Count 165 K/mm3 (150-450); RBC Distribution Width CV 13.2 % (11.6-14.6); RBC Distribution Width SD 43.5 fl (35.1-43.9); Red Blood Count 4.25 M/mm3 (4.2-5.4); White Blood Count 8.4 K/mm3 (4.4-11.0)
[2017-10-21 03:44] LABS: Partial Thromboplast Time 67.9 Seconds (24.1-36.2)
[2017-10-21 03:50] LABS: Anion Gap 11 (5-15); BUN 12 mg/dL (7-18); BUN/Creat Ratio 19.4 RATIO (10-20); Calcium,Total 8.3 mg/dL (8.5-10.1); Chloride 107 mmol/L (98-107); Creatinine, Serum 0.62 mg/dL (0.55-1.02); EST Glomerular Filtration Rate 105 mL/min (>60); Est Glom Filt Rate - Afr Amer 127 mL/min (>60); Estimated Creatinine Clearance 73.72 ml/min; Glucose 111 mg/dL (74-106); Potassium 4.3 mmol/L (3.5-5.1); Sodium Level 138 mmol/L (136-145)
[2017-10-21 03:57] LABS: POSITIVE COUNT NO; POSITIVE DIFFERENTIAL NO; POSITIVE MORPHOLOGY NO
--- NOTE | 2017-10-21 05:55 | EKG12_ITS ---
Test Reason : MORNING EKG Blood Pressure : / mmHG Vent. Rate : 101 BPM Atrial Rate : 101 BPM P-R Int : 138 ms QRS Dur : 078 ms QT Int : 378 ms P-R-T Axes : 050 049 045 degrees QTc Int : 490 ms Sinus tachycardia with occasional Premature ventricular complexes ST & T wave abnormality, consider anterior ischemia Abnormal ECG Confirmed by BARON RIOS ([id number]), supervising editor trailer ALENA ANN ([id number]) on 10/27/2017 2:21:04 PM Referred By: KALIA Confirmed By:BARON RIOS
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
[2017-10-21] MEDS: HEPARIN/D5w 25,000 UNITS 25,000 UNITS/250 ML IV.SOLN. 14 UNITS IV (09:04)
[2017-10-21] MEDS: Divalproex (ER) 250 MG Tablet 1250 MG PO (09:37)
[2017-10-21 10:36] LABS: Partial Thromboplast Time 57.3 Seconds (24.1-36.2)
--- NOTE | 2017-10-21 10:50 | CASEMGMT ---
This RN CM to room to complete CM assessment pt is currently getting an ECHO at this time. Will attempt again later. SStaten RN CM
--- NOTE | 2017-10-21 13:30 | PN.CARD_ITS ---
Subjectve: Patient doing well, no 24 hour events. Telemetry showed sinus tachycardia with rare PVCs. Preliminary results of her lower extremity Dopplers demonstrate extensive bilateral thrombi in her deep veins. Objective: Vital Signs Temp Pulse Resp BP Pulse Ox 97.9 F 94 18 109/63 96 10/21/17 09:35 10/21/17 11:06 10/21/17 09:35 10/21/17 09:35 10/21/17 09:35 Oxygen Flow Rate 3 Oxygen Delivery Method Nasal Cannula Weight: 216 lb 4.375 oz Body Mass Index (BMI) 39.8 Intake and Output for Last 24 Hours 10/19/17 10/20/17 10/21/17 23:59 23:59 23:59 Intake Total 950 / 950 872.9 / 872.9 Balance 950 / 950 872.9 / 872.9 General: Awake, Alert, Oriented x 3 HEENT: PERRL, EOMI, Sclera Non Icteric Neck: Supple, Good ROM, No Lymph Node Enlargement Lungs: Clear to auscultation Cardiovascular: Regular Rhythm, Normal S1, Normal S2, No Murmurs, No Rubs, No Gallops Vascular: No Carotid Bruits, Normal Femoral Pulses, Normal Radial Pulses, Normal Dorsalis Pedal Pulse, Normal Posterior Tibial Pulses Abdomen: Bowel Sounds Present, Soft, Non Tender, No HSM, No Organomegaly Extremities: No Cyanosis, No Clubbing, No edema Neurological: No Focal Motor or Sensory Deficit 10/20/17 14:08: Troponin I 1.39 H* 10/20/17 17:21: Triglycerides 165, Cholesterol 186, LDL Cholesterol 93, VLDL Cholesterol 33, HDL Cholesterol 60 10/20/17 17:27: Troponin I 0.83 H* 10/20/17 20:30: APTT 94.4 H* 10/20/17 23:38: Troponin I 1.12 H* 10/21/17 03:10: Sodium 138, Potassium 4.3, Chloride 107, Carbon Dioxide 20.0 L, Anion Gap 11, BUN 12, Creatinine 0.62, Est GFR (MDRD) Af Amer 127, Est GFR (MDRD ) Non-Af 105, BUN/Creatinine Ratio 19.4, Glucose 111 H, Calcium 8.3 L 10/21/17 03:26: WBC 8.4, RBC 4.25, Hgb 12.0, Hct 38.4, MCV 90.4, MCH 28.2, MCHC 31.3 L, RDW 13.2, RDW Differential 43.5, Plt Count 165, MPV 12.8 H, Immature Gran % (Auto) 0.100, Neut % (Auto) 67.1, Lymph % (Auto) 22.2, [place] % (Auto) 9.0 , Eos % (Auto) 1.1, Baso % (Auto) 0.5, Absolute Neuts (auto) 5.6, Total Counted Not Reportable 10/21/17 03:26: APTT 67.9 H 10/21/17 09:30: APTT 57.3 H Rhythm: EKG: ECHO: Severe RV enlargement, hyperdynamic LV function with an EF of 75%, RVSP at least 52 mmHg. Stress Test: Cardiac Cath: PCI: CT Surgery: Holter monitor: EPS: PPM: CXR: Chest CT Scan: Assessment/Plan 1. Abnormal troponin: This is most likely a result of acute RV strain given her acute bilateral pulmonary emboli. Her LV function is hyperdynamic and shows no signs of regional wall motion abnormalities. I would recommend treating with IV heparin, and transitioning her to either Coumadin or Eliquis going forward. Her lower extremity Dopplers demonstrate preliminarily extensive bilateral DVT with evidence of possible unstable thrombi. I relayed this information to Dr. Guerra, and I recommended surgery consultation for possible DVT filter placement. In addition recommend discontinuation of her estrogen based medications until she is back up and walking on a regular basis. Recommend keeping her PTT between 50 and 70 seconds. I would not recommend stress test at this time given her recent pulmonary emboli. We may consider this as an outpatient going forward at some point in the future. The patient has no other risk factors other than age for coronary disease, she is a lifelong non-smoker, nondrinker, nondiabetic, and has no known history of hypercholesterolemia or hypertension. I would not recommend slowing her heart rate down given her thrombus burden, as she requires increased heart rate to maintain cardiac output. 2. Recommend obtaining a fasting lipid profile for further cardiac risk stratification. 3. Take you very much for the opportunity to put dissipate in the cardiac care of your patient. We will sign off. Code Visit Inpatient E&M: 43103 Subs Hosp L2
--- NOTE | 2017-10-21 14:41 | CASEMGMT ---
Face to Face with patient for initial transition planning/care coordination assessment. RN PRISCILA introduced self and role at [facility], pt voices understanding and consents to assessment at this time. Pt is lying in bed in no distress at this time. Pt A/O x4 at this time and answers all questions appropriately at this time. Care providers, pharmacy, and demographics verified. See attached link. Pt voices no further concerns/needs at this time. Advised pt to ask for CM if any further questions/concerns/needs arise, voices understanding. CM to follow for any further discharge planning. PLAN: Home w/ resump [facility] SStaten ZEKE FRANCOIS
[2017-10-21 17:04] LABS: Partial Thromboplast Time 54.5 Seconds (24.1-36.2)
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
[2017-10-22] VITALS (12 sets, daily range): BP systolic 100–119; BP diastolic 60–79; PULSE 86–100; RESP 16–18; TEMP 36.3–36.9; O2SAT 94–99
[2017-10-22 06:35] LABS: Partial Thromboplast Time 55.2 Seconds (24.1-36.2)
[2017-10-22] MEDS: HEPARIN/D5w 25,000 UNITS 25,000 UNITS/250 ML IV.SOLN. 14 UNITS IV (07:19)
[2017-10-22 07:37] LABS: Absolute Lymphocyte Count 1.86 X10^3/ul (0.83-4.51); Basophil# 0.02 X10^3/uL; Basophil% 0.4 % (0-1); Eosinophil# 0.27 X10^3/uL; Eosinophils% 4.8 % (0-5); Hematocrit 37.3 % (37-47); Hemoglobin 11.7 g/dl (12.0-15.0); Lymphocyte # 1.86 X10^3/ul (4.0); Mean Corp Hgb Conc 31.4 g/gl (32-36); Mean Corpuscular Hgb 28.2 pg (27.0-32.0); Mean Corpuscular Volume 89.9 fL (81-99); Mean Platelet Vol. 13.2 fl (6.2-12.0); Monocyte# 0.45 X10^3/uL; Neutrophil # 3.02 X10^3/uL (2.7-7.7); Neutrophil % 53.6 % (47-70); Platelet Count 179 K/mm3 (150-450); RBC Distribution Width CV 13.1 % (11.6-14.6); RBC Distribution Width SD 42.8 fl (35.1-43.9); Red Blood Count 4.15 M/mm3 (4.2-5.4); White Blood Count 5.6 K/mm3 (4.4-11.0)
[2017-10-22 07:40] LABS: POSITIVE COUNT NO; POSITIVE DIFFERENTIAL NO; POSITIVE MORPHOLOGY NO
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
[2017-10-22] MEDS: Divalproex (ER) 250 MG Tablet 1250 MG PO (09:10)
--- NOTE | 2017-10-22 09:52 | NURSING ---
Pt having nose bleed from left nare. Mild amount of drainage. Given tissues and holding pressure with head slightly tilted. Placed humidification on O2
[2017-10-23] VITALS (11 sets, daily range): BP systolic 106–129; BP diastolic 66–79; PULSE 86–105; RESP 16–18; TEMP 36.6–37.1; O2SAT 95–96
[2017-10-23] MEDS: HEPARIN/D5w 25,000 UNITS 25,000 UNITS/250 ML IV.SOLN. 14 UNITS IV (06:03)
[2017-10-23 06:29] LABS: International Normalized Ratio 1.1; Prothrombin Time (Protime)PT. 13.7 SECONDS (11.7-14.9)
[2017-10-23 06:30] LABS: Partial Thromboplast Time 46.2 Seconds (24.1-36.2)
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
[2017-10-23] MEDS: Divalproex (ER) 250 MG Tablet 1250 MG PO (09:50)
[2017-10-23 20:33] LABS: Partial Thromboplast Time 52.4 Seconds (24.1-36.2)
[2017-10-23] MEDS: 0.9% NaCl Peripheral Flush Adult/Peds IV (20:40)
[2017-10-24] VITALS (19 sets, daily range): BP systolic 98–119; BP diastolic 58–73; PULSE 96–117; RESP 14–20; TEMP 36.4–37.1; O2SAT 91–95
[2017-10-24] MEDS: HEPARIN/D5w 25,000 UNITS 25,000 UNITS/250 ML IV.SOLN. 15 UNITS IV (01:13)
[2017-10-24 03:35] LABS: International Normalized Ratio 1.3; Prothrombin Time (Protime)PT. 15.7 SECONDS (11.7-14.9)
[2017-10-24 03:37] LABS: Partial Thromboplast Time 71.4 Seconds (24.1-36.2)
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
[2017-10-24 09:39] LABS: Partial Thromboplast Time 61.6 Seconds (24.1-36.2)
[2017-10-24] MEDS: Divalproex (ER) 250 MG Tablet 1250 MG PO (09:54)
[2017-10-24] MEDS: Enoxaparin 100 MG/ML Syringe SC ×2 (11:59→21:54)
[2017-10-25] VITALS (15 sets, daily range): BP systolic 100–121; BP diastolic 60–73; PULSE 100–111; RESP 16–29; TEMP 36.5–37.2; O2SAT 92–95
--- NOTE | 2017-10-25 00:12 | NURSING ---
Report received from ZEKE Sagastume. This RN will resume care at this time.
[2017-10-25 06:15] LABS: International Normalized Ratio 1.6; Prothrombin Time (Protime)PT. 18.1 SECONDS (11.7-14.9)
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
[2017-10-25] MEDS: Divalproex (ER) 250 MG Tablet 1250 MG PO (09:32)
[2017-10-25] MEDS: Furosemide 40 MG/4 ML Vial IV (09:32)
[2017-10-25] MEDS: Enoxaparin 100 MG/ML Syringe SC ×2 (09:32→21:36)
[2017-10-25] MEDS: 0.9% NaCl Peripheral Flush Adult/Peds IV ×2 (09:33→21:36)
[2017-10-26] VITALS (7 sets, daily range): BP systolic 103–114; BP diastolic 69–77; PULSE 100–105; RESP 18–19; TEMP 36.4–37; O2SAT 86–94
[2017-10-26 06:45] LABS: International Normalized Ratio 1.9; Prothrombin Time (Protime)PT. 20.9 SECONDS (11.7-14.9)
[2017-10-26] MEDS: Divalproex (ER) 250 MG Tablet 1250 MG PO (08:45)
[2017-10-26] MEDS: Enoxaparin 100 MG/ML Syringe SC (08:47)
--- NOTE | 2017-10-26 11:27 | PCM.DC ---
- Discharge Diagnoses Current Active Problems: Current Active and Chronic Problems Sinus tachycardia (Acute) Pulmonary hypertension (Acute) Non-ST elevation [place] (NSTEMI) (Acute) Bilateral pulmonary embolism (Acute) Seizure disorder (Chronic) You will use the following diet at home:: Cardiac Your food should be the consistency of: Regular Your liquids should be the consistency of: Regular/Thin Discharge Activity: Return to Normal Activity, - - PTOT with Home health care. Allergies/Adverse Reactions: Allergies No Known Allergies Allergy (Verified 09/18/17 09:14) Medications to take at Discharge Divalproex (ER) [Depakote ER] 1,250 mg PO DAILY@0800 09/22/17 Acetaminophen [Tylenol Tablet] 650 mg PO Q6H PRN PRN tablet 10/12/17 Enoxaparin [Lovenox] 100 mg SC Q12 #10 syringe 10/24/17 Warfarin [Coumadin] 5 mg PO DAILY@1700 #30 tab 10/26/17 The following prescriptions were given: Enoxaparin [Lovenox] 100 mg SC Q12 #10 syringe Warfarin [Coumadin] 5 mg PO DAILY@1700 #30 tab Primary Care Physician: Kamila Foster MD [Primary Care Provider] - Please follow up with your Primary Care Physician in: 1 week Please Follow Up With: Tyson Valencia MD When: 2 weeks Proposed Discharge Date: 10/26/17
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
--- NOTE | 2017-10-26 11:41 | CASEMGMT ---
Per Jeffery ALANIS, pt qualified for home oxygen at this time. This RN CM to room to speak with pt regarding DME preference for home oxygen and /pt state [facility]. Referral faxed to [facility] at this time with order, face sheet, qualification and F2F. Silvina ALANIS CM
--- NOTE | 2017-10-26 11:44 | CASEMGMT ---
SW was told patient wanted to return to the rehab unit. SW spoke with Cherelle in the rehab unit and they would not be able to take patient as she does not have a qualifying diagnosis. SW spoke with patient and let her know this and they wanted to know other options. SW went to her insurance website and printed out a list of in network facilities in the area. They wanted [facility], but it was not on the list. SW said will ask [facility] to see if they are in network. She said if they are not in network she will go home. BUZZ spoke with W and she ran patient's insurance card. They are out of network. SW let patient and her know this information. ZKEE Sagastume then came in to talk with them about oxygen and home health. Sherry MEANS MSW
== END 2017-10-26 14:10 | disposition home health service (06) | DRG 175 ==
LOC: ED 10:07 → PCU 11:19
PROVIDERS: Internal Medicine; Internal Medicine Cardiovascular Disease; Admitting Provider Hospitalist; Emergency Provider Emergency Medicine; Family Provider Family Medicine; PCP Family Medicine; Visit Provider Internal Medicine
DX: I26.99 Other pulmonary embolism without acute cor pulmonale (principal); J96.01 Acute respiratory failure with hypoxia; I21.4 Non-ST elevation (NSTEMI) myocardial infarction; I82.403 Acute embolism and thrombosis of unspecified deep veins of lower extremity, bilateral; I27.20 Pulmonary hypertension, unspecified; I51.9 Heart disease, unspecified; G40.909 Epilepsy, unspecified, not intractable, without status epilepticus; S22.41XD Multiple fractures of ribs, right side, subsequent encounter for fracture with routine healing; S82.892D Other fracture of left lower leg, subsequent encounter for closed fracture with routine healing; V89.2XXD Person injured in unspecified motor-vehicle accident, traffic, subsequent encounter
CPT/HCPCS: 36415; 71275; 80048; 80061; 84484; 85025; 85610; 85730; 93005; 93308; 93970; 97110; 97116; 97162; 97166; 97530; 97802; 99284; J7030; Q9967; A4216; J1940

== ENCOUNTER → 2017-11-23 09:22 | Outpatient (CLI) | payer OTHER, SELFPAY | PROVIDERS: Visit Provider Family Medicine | DX: Z00.00 Encounter for general adult medical examination without abnormal findings (principal) ==

== ENCOUNTER 2017-12-24 09:30 | Outpatient (RCR) | payer OTHER, SELFPAY ==
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
--- NOTE | 2017-11-23 13:57 | HP.PTREVAL_ITS ---
Out of Town Doctor, BARON RAY MD It has been my pleasure to treat SMITHA PISANO over the last 10 visits for DISPL CHANA FX L LEG, SPRAIN TIB FIB LIG L ANKLE, LACER W/O FOREIGN L KNEE. Please see the progress note below for an update on the physical therapy plan of care! Subjective: PATIENT REPORTS SHE WAS ABLE TO GO UP THE STEPS AT [employer] TWICE YESTERDAY. STATES SHE USED THE CANE AND HANDRAILS TO MANAGE THE STEPS AND AREA INBETWEEN. PATIENT REPORTS SHE GETS TIRED - HAS MADE 900 COOKIES OVER THE WEEKEND - BUT NOT HAVING PAIN, NUMBNESS OR TINGLING IN THE LEFT FOOT OR ANKLE. STATES JUST LEG TIREDNESS. STATES SHE CAN GET HER BOOT OFF NOW BY HERSELF BUT NOT GET IT ON TIGHT ENOUGH YET DUE TO THE NUMBNESS/PAIN IN HER ABDOMEN FROM THE SHOTS. CURRENTLY ABLE TO GET IN AND OUT OF THE HOUSE THE LAST FEW DAYS FROM THE GARAGE INDEP'LY WITH THE CANE. NO PAIN SINCE IT WAS PROVOKED AT WORK ABOUT A WEEK AGO. Objective/Function: PATIENT IS MAKING GOOD PROGRESS TOWARD ALL GOALS. LEFS SCORE HAS IMRPOVED FROM 12 TO 37. SHE HAS GONE FROM NON WEIGHTBEARING ON THE LEFT LE TO FULL WEIGHT BEARING SIGNIFICANT DISTANCES FWB WITH A CANE IN ABOUT 3 WEEKS TIME. SHE HAS ONLY BECOME INDEP WITH THE CANE IN THE COMMUNITY AND IN AND OUT OF HER HOUSE IN THE LAST FEW DAYS THOUGH. SHE IS PROBABLY READY TO START WEARING A SHOE NOW BUT WE WILL GO AHEAD AND WAIT UNTIL HER SURGICAL RE- CHECK THURSDAY AT THIS POINT. PATIENT IS ACTUALLY REFUSING TO TRANSITION TO A SHOE IN WEIGHT BEARING FOR ANOTHER WEEK BECAUSE SHE HAS AN IMPRORTANT WEEKEND COMING UP FOR [facility] AND SHE DOESN'T WANT TO TAKE ANY CHANCES HURTING IT BEFORE THEN. SHE DEMONSTRATES THE ABILITY TO TAKE HER BOOT OFF BY HERSELF NOW AND SHE CAN ACTURALLY MOSTLY PUT IT ON BYHERSELF WITH THE EXCEPTION OF THE LOWEST STRAPS AND TIGHTENING IT. HER LATERAL ANKLE INCISION IS WELL HEALED WITHOUT ANY SIGNS OF INFECTION AND SHE REPORTS HER MEDIAL INCISION IS WELL HEALED TOO BUT IT IS NOT VISIBLE DUE TO HER COVERING IT BECAUSE SHE WAS FEELING A LITTLE RUBBING ON IT FROM HER BOOT. SHE REPORTS THE SKIN INTEGRITY OF THIS AREA IS GOOD THOUGH WITHOUT REDNESS. SHE HAS MODERATE EDEMA IN THE LEFT FOOT AND ANKLE. MILD EDEMA LEFT KNEE WITH WELL HEALING LACERATION LATERALLY. LLE STRENGTH: HIP FLEX 4/5, KNEE EXT 4-/5, KNEE FLEX 4/5 IN AVAILABLE ROM WITH KNEE FLEX TO APPROX 110 DEG. SHE HAS IMPROVING MVMT IN HER ANKLE MEASURING 0 DEG DORSIFLEX TO 33 DEG PLANTAR FLEX ACTIVELY. SHE ALSO HAS ABOUT 8 DEG OF INVERSION AND A FEW DEGREES OF EVERSION ACTIVELY. SHE IS ABLE TO WIGGLE ALL OF HER TOES AND LIGHT TOUCH SENSATION APPEARS TO BE INTACT THROUGHOUT THE LLE. RECOMMEND CONTINUED PT. SHE IS INDEP WITH A HEP BUT WILL NEED PROGRESSION WILL HEP AND GAIT DEPENDING ON OUTCOME WITH RE-CHECK WITH SURGEON. PATIENT DENIED PAIN THROUGHOUT SESSION TODAY. Plan Plan: RECOMMEND CONTINUED PT 3X'S A WEEK X 2 WEEKS THEN DECREASING TO 2X'S A WEEK X 2 WEEKS WORKING TOWARD SAME GOALS AND WITH SAME POC. Goals Goal 1:: INDEP AND SAFE GAIT ON ALL SURFACES WEIGHT BEARING TOLERATED WITH LEAST ASSISTIVE DEVICE Goal Time Frame: 8-12 Weeks Goal Progress: Progressing Goal 2:: INCREASE FUNCTIONAL ROM OF LLE Goal Time Frame: 8-12 Weeks Goal Progress: Progressing Goal 3:: INCREASE FUNCTIONAL STRENGTH OF LLE Goal Time Frame: 8-12 Weeks Goal Progress: Progressing Goal 4:: INDEP HEP Goal Time Frame: 8-12 Weeks Goal Progress: Progressing Anticipated Interventions Patient/Client Instruction: Educate patient on: Condition, Plan of Care, Risk Factors, Benefits of Fitness Program For the Purpose of:: To improve self management Therapeutic Exercise to Include: Strength training, Endurance training, Balance training, Body mechanics, Postural training, Flexibilty training, Gait and locomotor training, Neuromotor development, Passive ROM, Active ROM For the Purpose of:: To decrease swelling/inflammation, To increase ROM, To improve muscle performance and motor function, To improve ability to perform ADL 's, To increase tolerance to activity/condition/position, To improve performance and independence with ADL's, To improve ability of physical actions for home/community/work/leisure, To improve gait and locomotor functions, To improve balance Please do not hesitate to contact me at [phone] by phone or Fax: if you have questions or concerns regarding this new plan of care! Sincerely, Marley Greenberg
--- NOTE | 2017-12-24 11:23 | HP.PTDCSUM_ITS ---
HP - PT D/C Summary It has been my pleasure to treat SMITHA PISANO under orders from Out of Town Doctor, for the diagnosis of DISPL CHANA FX L LEG, SPRAIN TIB FIB LIG L ANKLE, LACER W/O FOREIGN L KNEE for a total of 20 visit(s). Discharge Date: 12/24/17 Please see the following information for a summary of their discharge status. - Subjective Subjective: PATIENT REPORTS SHE ISN'T USING THE CANE ANYMORE (HARDLY AT ALL. NOT EVEN USING IT ON STEPS MUCH). WEARING NORMAL TENNIS SHOE EVERY WHERE NOW. PATIENT REPORTS SHE DRIVES WHEREVER SHE WANTS TO GO AND DOES THE GROCERY SHOPPING. SHE HAS RESUMED ALL NORMAL ACTIVITY. PATIENT REPORTS SHE FEELS SHE CAN CONTINUE EXERCISING ON HER OWN AT THIS POINT. FOLLOW UP WITH HER SURGEON IS PLANNED FOR JANUARY. PATIENT REPORTS SHE REALLY DOESN'T HAVE ANY CONCERNS AND ISN' T HAVING PAIN. 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 SHE IS ABLE TO SLS BILATERALLY X > 10 SEC EACH. SHE IS UNABLE TO SINGLE LEG HEEL RAISE ON EITHER LEG. SHE DEMONSTRATES THE ABILITY TO TAKE HER SHOE AND SOCK OFF BY HERSELF NOW AND SHE CAN PUT them ON BY HERSELF. SHE HAS MODERATE EDEMA IN THE LEFT FOOT AND ANKLE. VERY MILD EDEMA LEFT KNEE WITH WELL HEALED LACERATION LATERALLY. LLE STRENGTH: HIP FLEX 5/5, KNEE EXT 5/5, KNEE FLEX 5/5 IN AVAILABLE ROM WITH KNEE FLEX TO APPROX 114 DEG. SHE HAS IMPROVING MVMT IN HER ANKLE MEASURING 4 DEG DORSIFLEX TO 47 DEG PLANTAR FLEX ACTIVELY. SHE ALSO HAS ABOUT 14 DEG OF INVERSION AND 5 DEGREES OF EVERSION ACTIVELY. SHE IS ABLE TO WIGGLE ALL OF HER TOES AND LIGHT TOUCH SENSATION APPEARS TO BE INTACT THROUGHOUT THE LLE. SHE IS INDEP WITH A HEP. PATIENT DENIED PAIN THROUGHOUT SESSION TODAY. LEFS HAS IMPROVED FROM 37 TO 62. SHE REPORTS SHE IS STILL HAVING SOME ABDOMINAL PAIN FROM THE SHOTS THAT LIMITS HER IN WAYS THAT HER FOOT DOES NOT SUCH TURNING OVER IN BED (A QUESTION ON THE LEFS). - Goals Goal 1:: INDEP AND SAFE GAIT ON ALL SURFACES WEIGHT BEARING TOLERATED WITH LEAST ASSISTIVE DEVICE Goal Progress: Goal Met Goal 2:: INCREASE FUNCTIONAL ROM OF LLE Goal Progress: Goal Met Goal 3:: INCREASE FUNCTIONAL STRENGTH OF LLE Goal Progress: Goal Met Goal 4:: INDEP HEP Goal Progress: Goal Met - Plan Plan: WILL D/C TO INDEP HEP AND PHYSICIAN FOLLOW UP AT PATIENTS REQUEST. RECOMMEND REFERRAL BACK TO PT IF PATIENT DOES NOT CONTINUE TO IMPROVE ON HER OWN. - D/C Information If there are questions or concerns regarding this patient's physical therapy, please feel free to call me at [phone]. Thank you for the referral of this patient. Sincerely, Marley Greenberg
== END 2017-12-24 16:20 | disposition home or self-care (01) ==
LOC: PT 09:30
PROVIDERS: Family Provider Family Medicine; PCP Family Medicine
DX: S82.842D Displaced bimalleolar fracture of left lower leg, subsequent encounter for closed fracture with routine healing (principal); S93.432D Sprain of tibiofibular ligament of left ankle, subsequent encounter; S81.012D Laceration without foreign body, left knee, subsequent encounter
CPT/HCPCS: 97110; 97116; 97162; 97164; 97530

== ENCOUNTER → 2018-01-11 | Outpatient (CLI) | payer OTHER, SELFPAY ==
--- NOTE | 2018-01-11 09:49 | ECHOD_ITS ---
Reason For Study: F/U on PE, Right Heart Strain Procedure This was a 2D Doppler, Color Flow transthoracic echocardiogram. Exam performed in department. Left Ventricle Normal size and thickness. The estimated ejection fraction is 65 %. Stage 1 diastolic dysfunction. No regional wall motion abnormalities noted. Right Ventricle Normal size and thickness. Normal systolic function. Atria The left atrium is mildly enlarged. Normal right atrium. Normal atrial septum. Mitral Valve The mitral valve is structurally normal. No prolapse or stenosis seen. Tricuspid Valve Normal tricuspid valve. Trivial tricuspid valve insufficiency. Unable to estimate RV systolic pressure/pulmonary artery pressure due to technically difficult study. Aortic Valve Normal aortic valve. Trisinus/trileaflet aortic valve. Pulmonic Valve Normal pulmonic valve. Trivial pulmonic valve insufficiency. Great Vessels Normal aortic root. Normal arch. Normal inferior vena cava. Inferior vena cava collapse with sniff. Pericardium/Pleural No pericardial effusion. MMode/2D Measurements & Calculations LVIDd: 4.4 cm IVSd: 0.94 cm Ao root diam: 3.1 cm LVIDs: 2.6 cm LVPWd: 1.2 cm LA dimension: 4.2 cm RVDd: 3.0 cm FS: 40.0 % LAV(MOD-sp4): 61.6 ml LA A4 area: 20.5 cm2 RA A4 area: 12.7 cm2 Time Measurements MV dec time: 0.24 sec Doppler Measurements & Calculations MV E max martin: 63.4 cm/sec Lat Peak E' Martin: 9.0 cm/sec Med Peak E' Martin: 7.6 cm/sec MV A max martin: 83.7 cm/sec E/E' lat: 7.1 E/E' med: 8.4 MV E/A: 0.76 MV V2 max: 98.2 cm/sec MV P1/2t max martin: 76.1 cm/sec Ao V2 max: 143.5 cm/sec MV max P.9 mmHg MV P1/2t: 78.3 msec Ao max P.2 mmHg MV V2 mean: 52.1 cm/sec MV dec slope: 284.7 cm/sec2 Ao V2 mean: 91.1 cm/sec MV mean P.3 mmHg MVA(P1/2t): 2.8 cm2 Ao mean P.8 mmHg MV V2 VTI: 23.0 cm Ao V2 VTI: 29.1 cm LV V1 max: 109.1 cm/sec PA V2 max: 119.4 cm/sec LV V1 max P.8 mmHg LV V1 mean P.9 mmHg LV V1 mean: 61.7 cm/sec LV V1 VTI: 23.1 cm Interpretation Summary The estimated ejection fraction is 65 %. Stage 1 diastolic dysfunction. The left atrium is mildly enlarged. Unable to estimate RV systolic pressure/pulmonary artery pressure due to technically difficult study. Compared to echo report dated 10/20/2017, LV function has remained the same, andr RV size and function have returned to normal. Ordering Physician: Clemencia Moses Referring Physician: Clemencia Moses Performed By: Ike Arana RCS
== END | disposition home or self-care (01) ==
PROVIDERS: Family Provider Family Medicine; PCP Family Medicine; Visit Provider Physician Assistant Medical
DX: I27.20 Pulmonary hypertension, unspecified (principal); I26.99 Other pulmonary embolism without acute cor pulmonale; I25.2 Old myocardial infarction
CPT/HCPCS: 93306

== ENCOUNTER → 2018-06-04 10:19 | Outpatient (CLI) | payer OTHER, SELFPAY ==
[2018-06-04 11:22] LABS: Absolute Lymphocyte Count 1.63 X10^3/ul (0.83-4.51); Absolute Neutrophil Count 2.5 X10^3/uL (2.0-7.7); Basophil# 0.05 X10^3/uL; Basophil% 1.1 % (0-1); Eosinophil# 0.19 X10^3/uL; Eosinophils% 4.1 % (0-5); Hemoglobin 13.6 g/dl (12.0-15.0); Lymphocyte # 1.63 X10^3/ul (4.0); Mean Corp Hgb Conc 32.4 g/gl (32-36); Mean Corpuscular Hgb 28.6 pg (27.0-32.0); Mean Corpuscular Volume 88.2 fL (81-99); Mean Platelet Vol. 12.6 fl (6.2-12.0); Monocyte# 0.32 X10^3/uL; Monocyte% 6.9 % (0-10); Neutrophil # 2.46 X10^3/uL (2.7-7.7); Neutrophil % 52.7 % (47-70); Platelet Count 184 K/mm3 (150-450); RBC Distribution Width CV 12.8 % (11.6-14.6); RBC Distribution Width SD 41.3 fl (35.1-43.9); Red Blood Count 4.76 M/mm3 (4.2-5.4); White Blood Count 4.7 K/mm3 (4.4-11.0)
[2018-06-04 11:23] LABS: POSITIVE COUNT NO; POSITIVE DIFFERENTIAL NO; POSITIVE MORPHOLOGY NO
[2018-06-04 11:51] LABS: AST(SGOT) 12 U/L (15-37); Alanine Aminotransfer ALT/SGPT 15 U/L (13-56); Albumin, Serum 3.4 g/dL (3.2-5.0); Alkaline Phosphatase 93 U/L (45-117); Bilirubin, Direct 0.15 mg/dL (0.00-0.30); Globulin 4.1 g/dL (2.2-4.2); Protein, Total 7.5 g/dL (6.4-8.2)
[2018-06-04 11:57] LABS: Valproic Acid (Depakene) Level 78 ug/mL (50-100)
== END ==
PROVIDERS: Family Provider Family Medicine; PCP Family Medicine; Referring Provider Psychiatry & Neurology Neurology; Visit Provider Psychiatry & Neurology Neurology
DX: G40.909 Epilepsy, unspecified, not intractable, without status epilepticus (principal)
CPT/HCPCS: 36415; 80076; 80164; 85025

== ENCOUNTER → 2019-06-06 08:48 | Outpatient (CLI) | payer OTHER, SELFPAY ==
[2019-06-06 09:26] LABS: Absolute Lymphocyte Count 1.62 X10^3/uL (0.83-4.51); Absolute Neutrophil Count 2.6 X10^3/uL (2.0-7.7); Basophil# 0.06 X10^3/uL; Basophil% 1.2 % (0-1); Hematocrit 44.6 % (37-47); Hemoglobin 14.8 g/dL (12.0-15.0); Lymphocyte # 1.62 X10^3/ul (4.0); Lymphocyte % 32.7 % (19-41); Mean Corp Hgb Conc 33.2 g/dL (32-36); Mean Corpuscular Hgb 28.9 pg (27.0-32.0); Mean Corpuscular Volume 87.1 fL (81-99); Mean Platelet Vol. 12.2 fl (6.2-12.0); Monocyte# 0.42 X10^3/uL; Monocyte% 8.5 % (0-10); NRBC Flagged by Analyzer 0 % (0-5); Neutrophil # 2.62 X10^3/uL (2.7-7.7); Platelet Count 206 K/mm3 (150-450); RBC Distribution Width CV 11.9 % (11.6-14.6); RBC Distribution Width SD 37.8 fl (35.1-43.9); Red Blood Count 5.12 M/mm3 (4.2-5.4)
[2019-06-06 09:49] LABS: AST(SGOT) 18 U/L (15-37); Alanine Aminotransfer ALT/SGPT 16 U/L (13-56); Albumin, Serum 3.5 g/dL (3.2-5.0); Alkaline Phosphatase 102 U/L (45-117); Bilirubin, Direct 0.13 mg/dL (0.00-0.30); Globulin 3.8 g/dL (2.2-4.2); Protein, Total 7.3 g/dL (6.4-8.2)
[2019-06-06 09:58] LABS: Valproic Acid (Depakene) Level 77 ug/mL (50-100)
== END ==
PROVIDERS: Family Provider Family Medicine; PCP Family Medicine; Referring Provider Psychiatry & Neurology Neurology; Visit Provider Psychiatry & Neurology Neurology
DX: G40.909 Epilepsy, unspecified, not intractable, without status epilepticus (principal)
CPT/HCPCS: 36415; 80076; 80164; 85025

== ENCOUNTER 2021-11-15 09:15 | Outpatient (CLI) | payer OTHER, SELFPAY ==
[2021-11-15 09:56] LABS: Absolute Lymphocyte Count 1.85 X10^3/uL (0.83-4.51); Absolute Neutrophil Count 2.6 X10^3/uL (2.0-7.7); Basophil# 0.05 X10^3/uL; Eosinophil# 0.24 X10^3/uL; Eosinophils% 4.7 % (0-5); Hematocrit 44.2 % (37-47); Hemoglobin 14.4 g/dL (12.0-15.0); Lymphocyte # 1.85 X10^3/ul (0.83-4.51); Lymphocyte % 35.9 % (19-41); Mean Corp Hgb Conc 32.6 g/dL (32-36); Mean Corpuscular Hgb 28.6 pg (27.0-32.0); Mean Corpuscular Volume 87.7 fL (81-99); Mean Platelet Vol. 12.8 fl (6.2-12.0); Monocyte# 0.43 X10^3/uL; Monocyte% 8.3 % (0-10); NRBC Flagged by Analyzer 0 % (0-5); Neutrophil # 2.55 X10^3/uL (2.7-7.7); Neutrophil % 49.5 % (47-70); Platelet Count 208 K/mm3 (150-450); RBC Distribution Width CV 12.2 % (11.6-14.6); RBC Distribution Width SD 39.3 fl (35.1-43.9); Red Blood Count 5.04 M/mm3 (4.2-5.4); White Blood Count 5.2 K/mm3 (4.4-11.0)
[2021-11-15 10:15] LABS: ALB/GLOB Ratio 0.8 RATIO (0.9-2.4); AST(SGOT) 14 U/L (15-37); Alanine Aminotransfer ALT/SGPT 17 U/L (13-56); Albumin, Serum 3.4 g/dL (3.2-5.0); Alkaline Phosphatase 76 U/L (45-117); Anion Gap 4 (5-15); BUN 20 mg/dL (7-18); BUN/Creat Ratio 21.9 RATIO (10-20); Calcium,Total 9.2 mg/dL (8.5-10.1); Chloride 111 mmol/L (98-107); Creatinine, Serum 0.92 mg/dL (0.55-1.02); EST Glomerular Filtration Rate 66 mL/min (>60); Est Glom Filt Rate - Afr Amer 80 mL/min (>60); Glucose 102 mg/dL (74-106); Potassium 3.9 mmol/L (3.5-5.1); Protein, Total 7.4 g/dL (6.4-8.2); Sodium Level 143 mmol/L (136-145)
[2021-11-15 10:19] LABS: Valproic Acid (Depakene) Level 76 ug/mL (50-100)
== END 2021-11-15 23:59 | disposition home or self-care (01) ==
LOC: MFPLAB 09:17
PROVIDERS: PCP Family Medicine; Referring Provider Family Medicine; Visit Provider Psychiatry & Neurology Neurology
DX: G40.909 Epilepsy, unspecified, not intractable, without status epilepticus (principal)
CPT/HCPCS: 36415; 80053; 80164; 85025

== ENCOUNTER → 2023-07-01 | Outpatient (CLI) | payer MEDICARE, SELFPAY ==
[2023-07-01 10:41] LABS: Absolute Lymphocyte Count 1.53 X10^3/uL (0.83-4.51); Absolute Neutrophil Count 2.3 X10^3/uL (2.0-7.7); Basophil# 0.04 X10^3/uL; Basophil% 0.9 % (0-1); Eosinophil# 0.17 X10^3/uL; Eosinophils% 3.9 % (0-5); Hematocrit 45.7 % (37-47); Hemoglobin 15.1 g/dL (12.0-15.0); Lymphocyte # 1.53 X10^3/ul (0.83-4.51); Mean Corpuscular Hgb 29.2 pg (27.0-32.0); Mean Corpuscular Volume 88.4 fL (81-99); Mean Platelet Vol. 12.8 fl (6.2-12.0); Monocyte# 0.28 X10^3/uL; Monocyte% 6.4 % (0-10); NRBC Flagged by Analyzer 0 % (0-5); Neutrophil # 2.33 X10^3/uL (2.7-7.7); Neutrophil % 53.3 % (47-70); Platelet Count 200 K/mm3 (150-450); RBC Distribution Width CV 11.8 % (11.6-14.6); RBC Distribution Width SD 37.6 fl (35.1-43.9); Red Blood Count 5.17 M/mm3 (4.2-5.4); White Blood Count 4.4 K/mm3 (4.4-11.0)
[2023-07-01 11:15] LABS: Valproic Acid (Depakene) Level 71 ug/mL (50-100)
[2023-07-01 11:20] LABS: ALB/GLOB Ratio 0.8 RATIO (0.9-2.4); AST(SGOT) 16 U/L (15-37); Alanine Aminotransfer ALT/SGPT 24 U/L (13-56); Albumin, Serum 3.4 g/dL (3.2-5.0); Alkaline Phosphatase 79 U/L (45-117); Anion Gap 4 (5-15); BUN 18 mg/dL (7-18); BUN/Creat Ratio 21.7 RATIO (10-20); Calcium,Total 8.9 mg/dL (8.5-10.1); Chloride 107 mmol/L (98-107); Creatinine, Serum 0.83 mg/dL (0.55-1.02); EST Glomerular Filtration Rate 73 mL/min (>60); Est Glom Filt Rate - Afr Amer 89 mL/min (>60); Glucose 107 mg/dL (74-106); Potassium 3.8 mmol/L (3.5-5.1); Protein, Total 7.4 g/dL (6.4-8.2); Sodium Level 140 mmol/L (136-145)
== END | disposition home or self-care (01) ==
PROVIDERS: PCP Family Medicine; Visit Provider Psychiatry & Neurology Neurology
DX: G40.909 Epilepsy, unspecified, not intractable, without status epilepticus (principal)
CPT/HCPCS: 36415; 80053; 80164; 85025

== ENCOUNTER → 2024-07-25 | Outpatient (CLI) | payer MEDICARE, SELFPAY ==
[2024-07-25 17:30] LABS: Absolute Lymphocyte Count 1.95 X10^3/uL (0.83-4.51); Absolute Neutrophil Count 2.7 X10^3/uL (2.0-7.7); Basophil# 0.05 X10^3/uL; Eosinophils% 3.8 % (0-5); Hematocrit 42.2 % (37-47); Hemoglobin 13.9 g/dL (12.0-15.0); Lymphocyte # 1.95 X10^3/ul (0.83-4.51); Lymphocyte % 37.1 % (19-41); Mean Corp Hgb Conc 32.9 g/dL (32-36); Mean Corpuscular Hgb 28.8 pg (27.0-32.0); Mean Corpuscular Volume 87.4 fL (81-99); Mean Platelet Vol. 13.2 fl (6.2-12.0); Monocyte# 0.37 X10^3/uL; NRBC Flagged by Analyzer 0 % (0-5); Neutrophil # 2.65 X10^3/uL (2.7-7.7); Neutrophil % 50.5 % (47-70); POSITIVE COUNT NO; POSITIVE DIFFERENTIAL NO; POSITIVE MORPHOLOGY NO; Platelet Count 196 K/mm3 (150-450); RBC Distribution Width CV 12.4 % (11.6-14.6); RBC Distribution Width SD 39.7 fl (35.1-43.9); Red Blood Count 4.83 M/mm3 (4.2-5.4); White Blood Count 5.3 K/mm3 (4.4-11.0)
[2024-07-25 18:34] LABS: Valproic Acid (Depakene) Level 72 ug/mL (50-100)
[2024-07-25 18:35] LABS: ALB/GLOB Ratio 0.9 RATIO (0.9-2.4); AST(SGOT) 19 U/L (15-37); Alanine Aminotransfer ALT/SGPT 18 U/L (13-56); Albumin, Serum 3.5 g/dL (3.2-5.0); Alkaline Phosphatase 70 U/L (45-117); Anion Gap 5 (5-15); BUN 13 mg/dL (7-18); BUN/Creat Ratio 17.5 RATIO (10-20); Calcium,Total 9.1 mg/dL (8.5-10.1); Chloride 107 mmol/L (98-107); Creatinine, Serum 0.74 mg/dL (0.55-1.02); EST Glomerular Filtration Rate 83 mL/min (>60); Est Glom Filt Rate - Afr Amer 101 mL/min (>60); Globulin 3.7 g/dL (2.2-4.2); Glucose 96 mg/dL (74-106); Potassium 3.7 mmol/L (3.5-5.1); Protein, Total 7.2 g/dL (6.4-8.2); Sodium Level 142 mmol/L (136-145)
== END | disposition home or self-care (01) ==
LOC: MFPLAB 14:28
PROVIDERS: PCP Family Medicine; Visit Provider Psychiatry & Neurology Neurology
DX: G40.909 Epilepsy, unspecified, not intractable, without status epilepticus (principal)
CPT/HCPCS: 36415; 80053; 80164; 85025

== ENCOUNTER → 2025-07-20 | Outpatient (CLI) | payer MEDICARE, SELFPAY ==
--- OUTSIDE RECORDS SUMMARY | 2025-07-20 08:41 | XMS RPT_ITS | CCD ---
Author Organization [facility] Care Team Providers Care Lamp Shade Assembler Name Role Phone KAMILA FOSTER Unavailable Unavailable CHENTE MALONE JR. Unavailable Unavailab CHENTE Walker JR. Unavailable Unavailab BARON Frazier Unavailable Unavailable ANNABELLE HENDERSON Unavailable Unavailable LEVI IRVING Unavailable Unavailable ROCAEL SALES Unavailable Unavailable APARNA KELLER Unavailable Unavailable Unavailable Primary Care Provider Unavailtrinity e Vicente Acevedo Attending Unavailable Kamila Foster Primary Care Unavailable Vicente Acevedo Attending Unavailable Kamila Foster Primary Care Unavailable Medications Current Medications Medication Drug Class(es) Dates Sig (Normalized) Sig (Original) acetaminophen 325 mg oral tablet (1 source) Start: 10-12-2017 take 650 mg by mouth every six hours as needed Acetaminophen Active 650 MG PO EVERY 6 HOURS NEEDED October 12, 2017 4:46pm 24 hr divalproex sodium 250 mg extended release oral tablet (1 source) Mood Stabilizer, Anti-epileptic Agent Start: 09-22-2017 take 1250 mg by mouth once daily Divalproex Active 1250 MG PO DAILY@0800 September 22, 2017 5:11pm warfarin sodium 10 mg oral tablet (2 sources) Vitamin K Antagonist Start: 03-01-2018 take 10 mg by mouth once Warfarin Active 10 MG PO every Thursday, Thursday, and Thursday March 01, 2018 10:04am Start: 10-26-2017 End: 03-01-2018 take 5 mg by mouth once daily Warfarin Discontinued 5 MG PO DAILY@1700 30 October 26, 2017 12:22pm March 01, 2018 10:05am Completed/Discontinued Medications Medication Drug Class(es) Dates Sig (Normalized) Sig (Original) aspirin 81 mg chewable tablet (1 source) Platelet Aggregation Inhibitor, Nonsteroidal Anti-inflammatory Drug Start: 09-22-2017 End: 10-26-2017 take 81 mg by mouth once daily Aspirin Discontinued 81 MG PO DAILY September 22, 2017 5:11pm October 26, 2017 12:25pm docusate sodium 100 mg oral capsule (1 source) Start: 09-22-2017 End: 10-12-2017 take 1 capsule by mouth twice daily Docusate Sodium (Colace) 100 MG capsule Discontinued 100 MG PO TWICE A DAY September 22, 2017 5:11pm October 12, 2017 4:47pm 1 ml enoxaparin sodium 100 mg/ml prefilled syringe (1 source) Low Molecular Weight Heparin Start: 10-24-2017 End: 11-09-2017 Enoxaparin Discontinued 100 MG SC EVERY 12 HOURS October 24, 2017 1:50pm November 09, 2017 11:56am estrogens, conjugated (long term) 0.45 mg oral tablet (1 source) Estrogen Start: 09-22-2017 End: 10-26-2017 take 1 tablet by mouth once daily Conjugated Estrogens (Premarin) 0.45 MG tablet Discontinued 0.45 MG PO DAILY September 22, 2017 5:11pm October 26, 2017 12:23pm 1 ml heparin sodium, porcine 5000 unt/ml cartridge (1 source) Unfractionated Heparin, Anti-coagulant Start: 09-22-2017 End: 10-12-2017 Heparin (Porcine) Discontinued 5000 UNITS SC EVERY 8 HOURS September 22, 2017 5:11pm October 12, 2017 4:47pm Yskpiigl-Mgd-Uyyo Fum-Folic Ac (1 source) Start: 09-22-2017 End: 10-26-2017 Zktfwwfh-Oil-Whcr Fum-Folic Ac Discontinued 1 EACH PO DAILY September 22, 2017 5:11pm October 26, 2017 12:23pm oxyCODONE hydrochloride 5 mg oral tablet (1 source) Opioid Agonist Start: 09-22-2017 End: 10-12-2017 take 5-10 mg by mouth every six hours as needed Oxycodone Discontinued 5 - 10 MG PO EVERY 6 HOURS NEEDED September 22, 2017 5:11pm October 12, 2017 4:47pm polyethylene glycol 3350 10877 mg powder for oral solution (1 source) Osmotic Laxative Start: 09-22-2017 End: 10-12-2017 take 17 g by mouth once daily Polyethylene Glycol 3350 Discontinued 17 GM PO DAILY September 22, 2017 5:11pm October 12, 2017 4:47pm Problems Problem Classification Problem Date Documented Da te Episodic/Chronic Acute myocardial infarction (1 source) Myocardial infarction; Translations: [Non-ST elevation (NSTEMI) myocardial infarction] Chronic Cardiac dysrhythmias (1 source) Sinus tachycardia; Translations: [Tachycardia, unspecified] Episodic Epilepsy; convulsions (3 sources) Seizure disorder; Translations: [Epilepsy, unspecified, not intractable, without status epilepticus] Onset: 08-23-2024 Chronic Fracture of lower limb (1 source) Fracture of ankle; Translations: [Other fracture of left lower leg, initial encounter for closed fracture] Episodic Other fractures (1 source) Fracture of multiple ribs ; Translations: [Multiple fractures of ribs, right side, sequela] Episodic Pleurisy; pneumothorax; pulmonary collapse (1 source) Right pneumothorax; Translations: [Pneumothorax, unspecified] Episodic Pulmonary heart disease (1 source) Pulmonary hypertension; Translations: [Pulmonary hypertension, unspecified] Chronic Pulmonary heart disease (1 source) Pulmonary embolism; Translations: [Other pulmonary embolism without acute cor pulmonale] Episodic Results Test Name Value Interpretation Reference Range Facility 36on 08-23-2024 36 Mammogram reminder c all LVM Normal [facility] CBC W/Diff, Automatedon 07-02 Absolute Lymph 1.95 X10 3/uL Normal 0.83-4.51 [facility] Comment on above: Performed By: #### L 500.4050, L100.0100, L501.8100 #### [facility] [address] [facility] [place], [address] Absolute Neut 2.7 X10 3/uL Normal 2.0-7.7 [facility] Comment on above: Performed By: #### L 500.4050, L100.0100, L501.8100 #### [facility] [address] [place], [address] Basophils/100 WBC (Bld) 1.0 % Normal 0-1 [facility] Comment on above: Performed By: #### L 500.4050, L100.0100, L501.8100 #### [facility] [address] [place], [address] Eosinophils/100 WBC (Bld) 3.8 % Normal 0-5 [facility] Comment on above: Performed By: #### L 500.4050, L100.0100, L501.8100 #### [facility] [address] [place], [address] Erythrocyte distribution width (RBC) [Ratio] 12.4 % Normal 11.6-14.6 [facility] Comment on above: Performed By: #### L 500.4050, L100.0100, L501.8100 #### [facility] [address] [place], [address] Hematocrit (Bld) [Volume fraction] 42.2 % Normal 37-47 [facility] Comment on above: Performed By: #### L 500.4050, L100.0100, L501.8100 #### [facility] [address] [place], [address] Hemoglobin (Bld) [Mass/Vol] 13.9 g/dL Normal 12.0-15.0 [facility] Comment on above: Performed By: #### L 500.4050, L100.0100, L501.8100 #### [facility] [address] [place], [address] IG% 0.600 Normal 0.0-0.9 [facility] Comment on above: Result Comment: IG% - Immature Granulocytes (promyelocytes, myelocytes and metamyelocytes) > 1% indicates that a LEFT SHIFT is Present. Performed By: #### L 500.4050, L100.0100, L501.8100 #### [facility] [address] [place], [address] Lymphocytes/100 WBC (Bld) 37.1 % Normal 19-41 [facility] Comment on above: Performed By: #### L 500.4050, L100.0100, L501.8100 #### [facility] [address] [place], [address] MCH (RBC) [Entitic mass] 28.8 pg Normal 27.0-32.0 [facility] Comment on above: Performed By: #### L 500.4050, L100.0100, L501.8100 #### [facility] [address] [place], [address] MCHC (RBC) [Mass/Vol] 32.9 g/dL Normal 32-36 [facility] Comment on above: Performed By: #### L 500.4050, L100.0100, L501.8100 #### [facility] [address] [place], [address] MCV (RBC) [Entitic vol] 87.4 fL Normal 81-99 [facility] Comment on above: Performed By: #### L 500.4050, L100.0100, L501.8100 #### [facility] [address] [place], [address] Monocytes/100 WBC (Bld) 7.0 % Normal 0-10 [facility] Comment on above: Performed By: #### L 500.4050, L100.0100, L501.8100 #### [facility] [address] [place], [address] Neutrophils/100 WBC (Bld) 50.5 % Normal 47-70 [facility] Comment on above: Performed By: #### L 500.4050, L100.0100, L501.8100 #### [facility] [address] [place], [address] Nucleated RBC (Bld) [#/Vol] 0 10*3/uL Normal 0-5 [facility] Comment on above: Performed By: #### L 500.4050, L100.0100, L501.8100 #### [facility] [address] [place], [address] Platelet mean volume (Bld) [Entitic vol] 13.2 fL High 6.2-12.0 [facility] Comment on above: Performed By: #### L 500.4050, L100.0100, L501.8100 #### [facility] [address] [place], [address] Platelets (Bld) [#/Vol] 196 10*3/uL Normal 150-450 [facility] Comment on above: Performed By: #### L 500.4050, L100.0100, L501.8100 #### [facility] [address] [place], [address] RBC (Bld) [#/Vol] 4.83 10*6/uL Normal 4.2-5.4 [facility] Comment on above: Performed By: #### L 500.4050, L100.0100, L501.8100 #### [facility] [address] [place], [address] RDW SD 39.7 fl Normal 35.1-43.9 [facility] Comment on above: Performed By: #### L 500.4050, L100.0100, L501.8100 #### [facility] [address] [place], [address] WBC (Bld) [#/Vol] 5.3 10*3/uL Normal 4.4-11.0 [facility] Comment on above: Performed By: #### L 500.4050, L100.0100, L501.8100 #### [facility] [address] [place], [address] Comprehensive Metabolic Prof ilon 07-25-2024 Albumin [Mass/Vol] 3.5 g/dL Normal 3.2-5.0 [facility] Comment on above: Performed By: #### L 500.4050, L100.0100, L501.8100 #### [facility] [address] [place], [address] Albumin/Globulin [Mass ratio] 0.9 {ratio} Normal 0.9-2.4 [facility] Comment on above: Performed By: #### L 500.4050, L100.0100, L501.8100 #### [facility] [address] [place], [address] ALK P 70 U/L Normal 45-117 [facility] Comment on above: Performed By: #### L 500.4050, L100.0100, L501.8100 #### [facility] [address] [place], [address] ALT [Catalytic activity/Vol] 18 U/L Normal 13-56 [facility] Comment on above: Performed By: #### L 500.4050, L100.0100, L501.8100 #### [facility] [address] [place], [address] AST [Catalytic activity/Vol] 19 U/L Normal 15-37 [facility] Comment on above: Performed By: #### L 500.4050, L100.0100, L501.8100 #### [facility] [address] [place], [address] Bilirubin [Mass/Vol] 0.50 mg/dL Normal 0.20-1.00 [facility] Comment on above: Result Comment: For patients on eltrombopag therapy, use of Dimension [place] TBIL is not recommended. Performed By: #### L 500.4050, L100.0100, L501.8100 #### [facility] [address] [place], [address] BUN/CRE 17.5 RATIO Normal 10-20 [facility] Comment on above: Performed By: #### L 500.4050, L100.0100, L501.8100 #### [facility] [address] [place], [address] CA,Total 9.1 mg/dL Normal 8.5-10.1 [facility] Comment on above: Performed By: #### L 500.4050, L100.0100, L501.8100 #### [facility] [address] [place], [address] Chloride [Moles/Vol] 107 mmol/L Normal 98-107 [facility] Comment on above: Performed By: #### L 500.4050, L100.0100, L501.8100 #### [facility] [address] [place], [address] CO2 [Moles/Vol] 29.0 mmol/L Normal 21.0-32.0 [facility] Comment on above: Performed By: #### L 500.4050, L100.0100, L501.8100 #### [facility] [address] [place], [address] Creatinine [Mass/Vol] 0.74 mg/dL Normal 0.55-1.02 [facility] Comment on above: Result Comment: The validity of the calculated GFR GFRAA in patients over 70 years has not been determined. Clinical correlation is essential. Performed By: #### L 500.4050, L100.0100, L501.8100 #### [facility] [address] [place], [address] EST GFR - AA 101 mL/min Normal >60 [facility] Comment on above: Result Comment: Afri can Grenadian GFR Calc Performed By: #### L 500.4050, L100.0100, L501.8100 #### [facility] [address] [place], [address] GAP 5 Normal 5-15 [facility] Comment on above: Performed By: #### L 500.4050, L100.0100, L501.8100 #### [facility] [address] [place], [address] GFR/1.73 sq M.predicted among non-blacks MDRD (S/P/Bld) [Vol rate/Area] 83 mL/min/{1.73_m2} Normal >60 [facility] Comment on above: Result Comment: Non- GFR Calc Performed By: #### L 500.4050, L100.0100, L501.8100 #### [facility] [address] [place], [address] Globulin (S) [Mass/Vol] 3.7 g/dL Normal 2.2-4.2 [facility] Comment on above: Performed By: #### L 500.4050, L100.0100, L501.8100 #### [facility] [address] [place], [address] Glucose [Mass/Vol] 96 mg/dL Normal 74-106 [facility] Comment on above: Performed By: #### L 500.4050, L100.0100, L501.8100 #### [facility] [address] [place], [address] Potassium [Moles/Vol] 3.7 mmol/L Normal 3.5-5.1 [facility] Comment on above: Performed By: #### L 500.4050, L100.0100, L501.8100 #### [facility] [address] [place], [address] Sodium [Moles/Vol] 142 mmol/L Normal 136-145 [facility] Comment on above: Performed By: #### L 500.4050, L100.0100, L501.8100 #### [facility] [address] [place], [address] T PROT 7.2 g/dL Normal 6.4-8.2 [facility] Comment on above: Performed By: #### L 500.4050, L100.0100, L501.8100 #### [facility] [address] [place], [address] Urea nitrogen [Mass/Vol] 13 mg/dL Normal 7-18 [facility] Comment on above: Performed By: #### L 500.4050, L100.0100, L501.8100 #### [facility] [address] [place], [address] Valproic Acid (Depakene) Lev trixie 07-25-2024 VALPROIC ACID 72 ug/mL Normal 50-100 [facility] Comment on above: Performed By: #### L 500.4050, L100.0100, L501.8100 #### [facility] [address] [place], [address] Absolute lymphocyte counton 11-15-2021 Lymphocytes Auto (Unsp spec) [#/Vol] 1.85 10*3/uL 0.83-4.51 [facility] Work Phone: Basophil percentageon 2021 Basophils/100 WBC (Bld) 1.0 % 0-1 [facility] Work Phone: Bilirubin [Mass/Vol] 0.70 mg/dL 0.20-1.00 [facility] Work Phone: Comment on above: For patients on eltr ombopag therapy, use of Dimension [place] TBIL is not recommended. Chloride [Moles/Vol] 111 mmol/L 98-107 [facility] Work Phone: Eosinophils/100 WBC (Bld) 4.7 % 0-5 [facility] Work Phone: Glucose [Mass/Vol] 102 mg/dL 74-106 [facility] Work Phone: Comment on above: Fasting Glucose resu lt from 100 to 125 mg/dL suggests IMPAIRED HOMEOSTASIS per A.D.A. criteria. Neutrophils (Bld) [#/Vol] 2.6 10*3/uL 2.0-7.7 [facility] Work Phone: Neutrophils/100 WBC (Bld) 49.5 % 47-70 [facility] Work Phone: Potassium [Moles/Vol] 3.9 mmol/L 3.5-5.1 [facility] Work Phone: Protein [Mass/Vol] 7.4 g/dL 6.4-8.2 [facility] Work Phone: Sodium [Moles/Vol] 143 mmol/L 136-145 [facility] Work Phone: WBC (Bld) [#/Vol] 5.2 10*3/uL 4.4-11.0 [facility] Work Phone: Blood erythrocytes count (nu mber/volume)on 11-15-2021 RBC (Bld) [#/Vol] 5.04 10*6/uL 4.2-5.4 [facility] Work Phone: Blood hemoglobin measurement (mass/volume)on 11-15-2021 Hemoglobin (Bld) [Mass/Vol] 14.4 g/dL 12.0-15.0 [facility] Work Phone: Blood lymphocytes/100 leukoc yteson 11-15-2021 Lymphocytes/100 WBC (Bld) 35.9 % 19-41 [facility] Work Phone: Blood monocytes/100 leukocyt eson 11-15-2021 Monocytes/100 WBC (Bld) 8.3 % 0-10 [facility] Work Phone: Blood platelet mean volumeon 11-15-2021 Platelet mean volume (Bld) [Entitic vol] 12.8 fL 6.2-12.0 [facility] Work Phone: Determination of erythrocyte mean corpuscular volume (MCV)on 11-15-2021 MCV (RBC) [Entitic vol] 87.7 fL 81-99 [facility] Work Phone: [phone] Hematocrit Auto (Bld) [Volum e fraction]on 11-15-2021 Hematocrit (Bld) [Volume fraction] 44.2 % 37-47 [facility] Work Phone: [phone] Laboratory - Chemistry and C hemistry - challengeon 11-15-2021 ALP [Catalytic activity/Vol] 76 U/L 45-117 [facility] Work Phone: [phone] ALT [Catalytic activity/Vol] 17 U/L 13-56 [facility] Work Phone: [phone] CO2 [Moles/Vol] 28.0 mmol/L 21.0-32.0 [facility] Work Phone: [phone] Globulin (S) [Mass/Vol] 4.0 g/dL 2.2-4.2 [facility] Work Phone: [phone] Urea nitrogen/Creatinine [Mass ratio] 21.9 mg/mg 10-20 [facility] Work Phone: [phone] Laboratory - Hematology and Cell countson 11-15-2021 Erythrocyte distribution width (RBC) [Entitic vol] 39.3 fL 35.1-43.9 [facility] Work Phone: [phone] Erythrocyte distribution width (RBC) [Ratio] 12.2 % 11.6-14.6 [facility] Work Phone: [phone] Immature granulocytes/100 WBC (Bld) 0.600 % 0.0-0.9 [facility] Work Phone: [phone] Comment on above: IG% - Immature Granu locytes (promyelocytes, myelocytes and metamyelocytes) > 1% indicates that a LEFT SHIFT is Present. MCH (RBC) [Entitic mass] 28.6 pg 27.0-32.0 [facility] Work Phone: [phone] Nucleated RBC/100 WBC (Bld) [Ratio] 0 % 0-5 [facility] Work Phone: [phone] MCHC Auto (RBC) [Mass/Vol]on 11-15-2021 MCHC (RBC) [Mass/Vol] 32.6 g/dL 32-36 [facility] Work Phone: No Panel Informationon 11-15 Estimated GFR (MDRD) Amer 80 mL/min >60 [facility] Work Phone: Comment on above: GFR Calc Estimated GFR (MDRD) Non-Af Amer 66 mL/min >60 [facility] Work Phone: Comment on above: Non- GFR Calc Valproic Acid (Depakene) Level 76 ug/mL 50-100 [facility] Work Phone: Platelets bldon 11-15-2021 Platelets (Bld) [#/Vol] 208 10*3/uL 150-450 [facility] Work Phone: Serum or plasma albumin hayley urement (mass/volume)on 11-15-2021 Albumin [Mass/Vol] 3.4 g/dL 3.2-5.0 [facility] Work Phone: Serum or plasma albumin/glob ulin mass ratioon 11-15-2021 Albumin/Globulin [Mass ratio] 0.8 {ratio} 0.9-2.4 [facility] Work Phone: Serum or plasma calcium hayley urement (mass/volume)on 11-15-2021 Calcium [Mass/Vol] 9.2 mg/dL 8.5-10.1 [facility] Work Phone: [phone] Serum or plasma creatinine m easurement (mass/volume)on 11-15-2021 Creatinine [Mass/Vol] 0.92 mg/dL 0.55-1.02 [facility] Work Phone: Comment on above: The validity of the calculated GFR & GFRAA in patients over 70 years has not been determined. Clinical correlation is essential. Serum or plasma urea nitroge n measurement (mass/volume)on 11-15-2021 Urea nitrogen [Mass/Vol] 20 mg/dL -18 [facility] Work Phone: Thin prep Papanicolaou smear with manual screeningon 11-15-2021 Thin prep Papanicolaou smear with manual screening 14 U/L 15-37 [facility] Work Phone: Thin prep Papanicolaou smear with manual screening 4 5-15 [facility] Work Phone: CNCOon 10-31-2019 CNCO HNO ID: [id number] Author: Mammography Coordinator Service: ? Author Type: Physician Type: Letter Filed: 11/01/2019 11:32 PM Note Text: [facility] [address] [place] [address] October 31, 2019 PID: [id number] Mariana Gonzalez [address] [place] [address] Dear Ms. Gonzalez, We are pleased to inform you that the results of your recent breast imaging exam on 10/31/2019 are normal. Early detection of cancer is very important. We also understand recommendations regarding breast cancer screening are controversial. Please discuss with your primary care provider which strategy is best for you and whether a mammogram is right for you. Your imaging studies and report will be kept on file at [facility] as part of your permanent medical record and are available for your continuing care. Thank you for allowing us to help in meeting your health care needs. Sincerely, Dr. De Los Santos Interpreting Radiologist [facility] (Normal over 40) Normal [facility] VICK SCREENINGon 10-31-2019 VICK SCREENING * * *Final Report* * * DATE OF EXAM: Oct 31 2019 9:58AM [id number] [id number] - [facility] SCREENING / PROCEDURE REASON: Visit for screening mammogram * * * * Physician Interpretation * * * * #[id number] - [facility] SCREENING BILATERAL DIGITAL SCREENING MAMMOGRAM WITH CAD: 10/31/2019 HISTORY: Routine screening mammogram. Patient reports no breast problems. RESULT: TECHNIQUE: The study was acquired using full field digital technology and interpreted from soft copy. Current study was also evaluated with a Computer Aided Detection (CAD). Comparison is made to exams dated: 09/08/2018 mammogram, 05/10/2015 mammogram, 04/26/2013 mammogram - [facility], and 04/26/2012 mammogram - [facility]. There are scattered fibroglandular elements in both breasts. There are benign calcifications in both breasts. No significant masses, calcifications, or other findings are seen in either breast. There has been no significant interval change. IMPRESSION: BENIGN FINDING There is no mammographic evidence of malignancy. A 1 year screening mammogram is recommended. Leo arrington/peng:10/31/2019 10:16:53 Help Desk Intern(s): Georges Patton)(Desiree), [facility] [place] letter sent: Normal over 40 Mammogram BI-RADS: 2 Benign finding Multiple national specialty organizations have released breast cancer screening guidelines for women at average risk for developing breast cancer - guidelines that are based on both evidence and opinion, yet differ on when to start and how often to screen for breast cancer. With representation from Breast Imaging, Internal Medicine, Women's Health, Family Medicine, and Medical/Surgical Oncology, the [facility] has carefully reviewed the data and reached the following consensus: 1) All women should engage in shared decision-making with their providers to decide when to start and how often to screen; 2) All women should have the opportunity to start screening mammography at age 40; 3) For women ages 45-55, we recommend annual screening mammograms; 4) For women ages 55 and over, we support both the transition from an annual to a biennial interval if this aligns more with patient's values and preferences, or continuation with annual screening; 5) All women should discuss with their providers when to stop screening mammograms. Primary School Teacher: Peng Transcribe Date/Time: Oct 31 2019 9:35A Dictated by : LEO DE LOS SANTOS MD This examination was interpreted and the report reviewed and electronically signed by: LEO DE LOS SANTOS MD on Oct 31 2019 10:16AM EST Normal [facility] CNOVon 09-30-2019 CNOV Office Visit (AGOBBA TH) ----- MARIANA GONZALEZ ([id number]) 1960 F Date Time Provider Department 09/30/19 9:30 AM LAMBERTO FRANCO During your visit today, we recorded the following information about you: Blood pressure Weight 132/88 109.8 kg Lamberto Franco MD 09/30/2019 10:01 AM Signed Mariana Gonzalez is a 59 year old who presents for her annual gynecologic exam without complaints. Postmenopausal: Yes HRT use: No. Last Pap: normal HPV: N/A History of abnormal pap: No Last mammogram: 2018 normal History of abnormal mammogram: No Sexually active: Yes OB History T1 L2 SAB0 TAB0 Ectopic0 Multiple1 Live Births2 PAST MEDICAL HISTORY Diagnosis Date - Endometriosis - Obesity (BMI 35.0-39.9 without comorbidity) - Seizure (HCC) PAST SURGICAL HISTORY Procedure Laterality Date - COLONOSCOP W/ OR W/O BRSH SPEC 08/13/2016 Colonoscopy mac - F SALPINGO-OOPHORECTOMY - F TOTAL ABDOMINAL HYSTERECTOMY 1997 - LAPAROSCOPIC CHOLEYCYSTECTOMY Cholecystectomy, lap - PAST SURGICAL HISTORY OF c section - PAST SURGICAL HISTORY OF age 18 pionidal cyst FAMILY HISTORY Problem Relation Age of Onset - other (Non Hodgkins Lymphoma) Mother - Cancer Father Bladder - other (Dialysis) Father - Colon Cancer Sister - other (Celiac Disease) Brother SOCIAL HISTORY Social History Tobacco Use - Smoking status: Never Smoker - Smokeless tobacco: Never Used Substance Use Topics - Alcohol use: No - Drug use: No REVIEW OF SYSTEMS Abdomen: No abdominal pain, nausea, vomiting, diarrhea, or constipation. No bloating, early satiety, indigestion, or increased flatulence. Bladder: No dysuria, gross hematuria, urinary frequency, urinary urgency, or incontinence Breast: No breast lumps, nipple d/c, overlying skin changes, redness or skin retraction Allergies and current medication updated:Yes EXAM: BP 132/88 Wt 242 lb (109.8kg) GENERAL: pleasant, female in no apparent distress HEENT: Normocephalic, atraumatic, mucus membranes moist and no lesions NECK: Supple, full range of motion, no adenopathy and thyroid normal DERMATOLOGY: Normal, without lesions, non-icteric and non-hirsute BREAST: soft, non-tender, symmetric, no dominant mass, normal nipple-areolar complex, no lymphadenopathy and no nipple discharge CHEST: Normal inspiratory effort ABDOMEN: soft, non-tender and no masses PELVIC: external genitalia normal, normal Bartholin's glands, urethra, [place]'s glands, no vulvar lesions, no cervical lesions, good vaginal support, physiologic discharge present, normal appearing perineal body and perianal region BIMANUAL: uterus normal size, shape and consistency, no adnexal masses and non-tender RECTOVAGINAL: rectovaginal exam negative for any masses or nodularity. NEURO: alert and oriented x3,exam grossly non-focal EXTREMITIES: normal ASSESSMENT/PLAN: 1) Health maintenance: Pap/HPV screening no longer needed Mammogram ordered Colon cancer screening: up to date with screening 2) Follow up one year or sooner as needed MD Lamberto Moore MD 09/30/2019 9:52 AM Signed ACOG Screening Guidelines (2015) The following health screening schedule is recommended by the [employer] (ACOG). Some of these tests may be ordered or performed by your primary care doctor. Pap test screening The pap test looks at cells on the cervix (the opening from the vagina to the uterus) to look for cancer or pre-cancerous changes. These changes are caused by the human papillomavirus (HPV). Studies estimate that half of all women will test positive for this virus within 3 years of starting sexual activity. For young women with a normal immune system, 90% of HPV infections will resolve within 2 years. There is a vaccine available against some forms of HPV. This is recommended for girls and women age 9-26 and is a series of 3 injections over 6 months. Because this vaccine does not protect against all HPV types which can cause cervical cancer, women who received the vaccine still need pap tests. Pap smear screening should be started at age 21. The pap test should be done every 3 years from age 21-29. From age 30-65, pap smears can be done every 5 years if HPV test is negative or every 3 years if HPV testing is not done. For women over the age of 65, ACOG recommends against screening women who have had adequate prior screening and are not otherwise at high risk for cervical cancer. Women who have had a hysterectomy also do not need routine pap smear screening unless the pap smear was done for a cervical cancer or moderate to severe dysplasia. Breast cancer screening Mammogram should be performed every 1-2 years starting at age 40 and every year starting at age 50. Screening may be started earlier depending on family history. Cholesterol screening Lipid panel (cholesterol test) should be checked every 5 years starting at age 45. Diabetes screening Fasting glucose (blood sugar) test should be performed every 3 years starting at age 45. Colorectal cancer screening Starting at age 50, women should have a screening colonoscopy at least every 10 years. Screening may be started earlier depending on family history. Thyroid screening Thyroid function test (TSH) should be checked every 5 years starting at age 50. Bone mineral density screening All postmenopausal women age 65 and over and postmenopausal women with risk factors for osteoporosis should have a bone mineral density test performed. Risk factors include race, family history of osteoporosis, personal history of fractures, poor nutrition, smoking, heavy alcohol use, early menopause, low calcium intake and low body weight. Certain medical conditions and long-term use of some medications may also increase risk. Referring Provider: SELF [[id number]] Allergies As of Date: 09/30/2019 (No Known Allergies) Date Reviewed: 09/30/2019 Reviewed by: Ashely Sanderson) Jonathan - Fully Assessed Reason for Visit: Yearly Exam [187] Visit Diagnoses:Visit for screening mammogram [Z12.31] Encounter for gynecological examination (general) (routine) without abnormal findings [Z01.419] Order(s):VICK SCREENING [[id number]] Order #: [id number] FUTURE Prescriptions as of 09/30/2019 Sig: DIVALPROEX ER 250 MG TABLET,E* Take 250 mg by mouth once keyon* Problem List As Of Date 09/30/2019 Noted Resolved Seizures (HCC) [R56.9] 08/04/2016 Morbid obesity (HCC) [E66.01] 08/04/2016 Other instructions from your clinician: ACOG Screening Guidelines (2015) The following health screening schedule is recommended by the [employer] (ACOG). Some of these tests may be ordered or performed by your primary care doctor. Pap test screening The pap test looks at cells on the cervix (the opening from the vagina to the uterus) to look for cancer or pre-cancerous changes. These changes are caused by the human papillomavirus (HPV). Studies estimate that half of all women will test positive for this virus within 3 years of starting sexual activity. For young women with a normal immune system, 90% of HPV infections will resolve within 2 years. There is a vaccine available against some forms of HPV. This is recommended for girls and women age 9-26 and is a series of 3 injections over 6 months. Because this vaccine does not protect against all HPV types which can cause cervical cancer, women who received the vaccine still need pap tests. Pap smear screening should be started at age 21. The pap test should be done every 3 years from age 21-29. From age 30-65, pap smears can be done every 5 years if HPV test is negative or every 3 years if HPV testing is not done. For women over the age of 65, ACOG recommends against screening women who have had adequate prior screening and are not otherwise at high risk for cervical cancer. Women who have had a hysterectomy also do not need routine pap smear screening unless the pap smear was done for a cervical cancer or moderate to severe dysplasia. Breast cancer screening Mammogram should be performed every 1-2 years starting at age 40 and every year starting at age 50. Screening may be started earlier depending on family history. Cholesterol screening Lipid panel (cholesterol test) should be checked every 5 years starting at age 45. Diabetes screening Fasting glucose (blood sugar) test should be performed every 3 years starting at age 45. Colorectal cancer screening Starting at age 50, women should have a screening colonoscopy at least every 10 years. Screening may be started earlier depending on family history. Thyroid screening Thyroid function test (TSH) should be checked every 5 years starting at age 50. Bone mineral density screening All postmenopausal women age 65 and over and postmenopausal women with risk factors for osteoporosis should have a bone mineral density test performed. Risk factors include race, family history of osteoporosis, personal history of fractures, poor nutrition, smoking, heavy alcohol use, early menopause, low calcium intake and low body weight. Certain medical conditions and long-term use of some medications may also increase risk. Disposition: Return in 1 year (on 09/30/2020) for Annual Exam. Follow-up and Disposition History Recorded Encounter Status:Closed by LAMBERTO FRANCO MD on 09/30/19 [facility] PROGRESSon 09-30-2019 PROGRESS HNO ID: [id number] Author: Lamberto Franco Service: ? Author Type: Physician Type: Progress Notes Filed: 09/30/2019 10:01 AM Note Text: Mariana Gonzalez is a 59 year old who presents for her annual gynecologic exam without complaints. Postmenopausal: Yes HRT use: No. Last Pap: normal HPV: N/A History of abnormal pap: No Last mammogram: 2019 normal History of abnormal mammogram: No Sexually active: Yes OB History T1 L2 SAB0 TAB0 Ectopic0 Multiple1 Live Births2 PAST MEDICAL HISTORY Diagnosis Date - Endometriosis - Obesity (BMI 35.0-39.9 without comorbidity) - Seizure (HCC) PAST SURGICAL HISTORY Procedure Laterality Date - COLONOSCOP W/ OR W/O [facility] SPEC 08/13/2016 Colonoscopy mac - F SALPINGO-OOPHORECTOMY - F TOTAL ABDOMINAL HYSTERECTOMY 1997 - LAPAROSCOPIC CHOLEYCYSTECTOMY Cholecystectomy, lap - PAST SURGICAL HISTORY OF c section - PAST SURGICAL HISTORY OF age 18 pionidal cyst FAMILY HISTORY Problem Relation Age of Onset - other (Non Hodgkins Lymphoma) Mother - Cancer Father Bladder - other (Dialysis) Father - Colon Cancer Sister - other (Celiac Disease) Brother SOCIAL HISTORY Social History Tobacco Use - Smoking status: Never Smoker - Smokeless tobacco: Never Used Substance Use Topics - Alcohol use: No - Drug use: No REVIEW OF SYSTEMS Abdomen: No abdominal pain, nausea, vomiting, diarrhea, or constipation. No bloating, early satiety, indigestion, or increased flatulence. Bladder: No dysuria, gross hematuria, urinary frequency, urinary urgency, or incontinence Breast: No breast lumps, nipple d/c, overlying skin changes, redness or skin retraction Allergies and current medication updated:Yes EXAM: BP 132/88 Wt 242 lb (109.8kg) GENERAL: pleasant, female in no apparent distress HEENT: Normocephalic, atraumatic, mucus membranes moist and no lesions NECK: Supple, full range of motion, no adenopathy and thyroid normal DERMATOLOGY: Normal, without lesions, non-icteric and non-hirsute BREAST: soft, non-tender, symmetric, no dominant mass, normal nipple-areolar complex, no lymphadenopathy and no nipple discharge CHEST: Normal inspiratory effort ABDOMEN: soft, non-tender and no masses PELVIC: external genitalia normal, normal Bartholin's glands, urethra, [place]'s glands, no vulvar lesions, no cervical lesions, good vaginal support, physiologic discharge present, normal appearing perineal body and perianal region BIMANUAL: uterus normal size, shape and consistency, no adnexal masses and non-tender RECTOVAGINAL: rectovaginal exam negative for any masses or nodularity. NEURO: alert and oriented x3,exam grossly non-focal EXTREMITIES: normal ASSESSMENT/PLAN: 1) Health maintenance: Pap/HPV screening no longer needed Mammogram ordered Colon cancer screening: up to date with screening 2) Follow up one year or sooner as needed Lamberto Franco MD Normal [facility] Anesthesiology Consultationo n 09-30-2017 Anesthesiology Consultation [facility] Summary[place] 09-29-19 18 Discharge Summary [facility] Critical [place] Progress Notes on 09-22-2017 Critical Care Progress Notes [facility] Depart Summaryon 09-22-2017 Depart Summary [facility] Inpatient Patient Summaryon 09-22-2017 Inpatient Patient Summary Normal [facility]) Operative Noteon 09-22-2017 Operative Note Normal [facility]) Orthopedic Progress Noteon 0 09-22-2017 Orthopedic Progress Note [facility] Progress Noteon 09-22-2017 Progress Note [facility] .Auto Diffon 09-21-2017 Basophils Auto #/vol (Bld) 0.00 10 3/mcL Normal 0.00-0.27 [facility] Comment on above: Performed By: #### C BC, ADIFF, ANEU, CMP, GFR, APTT, PRO, ABORH, ANTIS ####[address] [address] Basophils/100 WBC Auto (Bld) 0.3 % Normal 0.0-2.5 [facility] Comment on above: Performed By: #### C BC, ADIFF, ANEU, CMP, GFR, APTT, PRO, ABORH, ANTIS ####[address] [address] Eosinophils 0.10 10 3/mcL Normal 0.00-0.65 [facility] [place] Comment on above: Performed By: #### C BC, ADIFF, ANEU, CMP, GFR, APTT, PRO, ABORH, ANTIS ####[address] [address] Eosinophils/100 leukocytes 1.0 % Normal 0.0-6.0 [facility] [place] Comment on above: Performed By: #### C BC, ADIFF, ANEU, CMP, GFR, APTT, PRO, ABORH, ANTIS ####[address] [address] Lymphocytes 1.10 10 3/mcL Normal 0.90-4.32 [facility] [place] Comment on above: Performed By: #### C BC, ADIFF, ANEU, CMP, GFR, APTT, PRO, ABORH, ANTIS ####[address] [address] Lymphocytes/100 leukocytes 14.4 % Low 20.0-40.0 [facility] [place] Comment on above: Performed By: #### C BC, ADIFF, ANEU, CMP, GFR, APTT, PRO, ABORH, ANTIS ####[address] [address] Monocytes 0.50 10 3/mcL Normal 0.09-1.40 [facility] [place] Comment on above: Performed By: #### C BC, ADIFF, ANEU, CMP, GFR, APTT, PRO, ABORH, ANTIS ####[address] [address] Monocytes/100 leukocytes 7.3 % Normal 2.0-13.0 [facility] [place] Comment on above: Performed By: #### C BC, ADIFF, ANEU, CMP, GFR, APTT, PRO, ABORH, ANTIS ####[address] [address] Neutrophils/100 WBC Auto (Bld) 77.0 % High 50.0-75.0 [facility] [place] Comment on above: Performed By: #### C BC, ADIFF, ANEU, CMP, GFR, APTT, PRO, ABORH, ANTIS ####[address] [address] .GFRon 09-21-2017 eGFR (non-black) mL/min/{1.73_m2} Normal [facility] ([place]) Comment on above: Result Comment: GFR Population mean for , Non- Americans Ages 20-29 = 116 mL/min/1.73 sq.m. Ages 30-39 = 107 mL/min/1.73 sq.m. Ages 40-49 = 99 mL/min/1.73 sq.m. Ages 50-59 = 93 mL/min/1.73 sq.m. Ages 60-69 = 85 mL/min/1.73 sq.m. Ages 70+ = 75 mL/min/1.73 sq.m.Chronic Kidney Disease: Less than 60 mL/min/1.73 square metersEnd Stage Renal Disease: Less than 15 mL/min/1.73 square meters Performed By: #### C BC, ADIFF, ANEU, CMP, GFR, APTT, PRO, ABORH, ANTIS ####[address] [address] .NEUABSon 09-21-2017 Neutrophils 5.60 10 3/mcL Normal 2.25-8.10 [facility] Comment on above: Performed By: #### C BC, ADIFF, ANEU, CMP, GFR, APTT, PRO, ABORH, ANTIS ####[address] [address] BMPon 09-21-2017 Potassium molar conc 3.9 mmol/L Normal 3.5-5.0 [facility] ([place]) Comment on above: Result Comment: Spec imen slightly hemolyzed. Results may be falsely elevated. Performed By: #### C BC, ADIFF, ANEU, CMP, GFR, APTT, PRO, ABORH, ANTIS ####[place] [address] BUN/Creatinine Ratio 15.5 ratio Normal 10.0-22.0 [facility] ([place] Comment on above: Performed By: #### C BC, ADIFF, ANEU, CMP, GFR, APTT, PRO, ABORH, ANTIS ####[place] [address] Calcium 8.0 mg/dL Low 8.4-10.1 [facility] ([place] Comment on above: Performed By: #### C BC, ADIFF, ANEU, CMP, GFR, APTT, PRO, ABORH, ANTIS ####[address] [address] Chloride 104 mmol/L Normal 98-110 [facility] [place] Comment on above: Performed By: #### C BC, ADIFF, ANEU, CMP, GFR, APTT, PRO, ABORH, ANTIS ####[address] [address] CO2 32 mmol/L Normal 22-32 [facility] [place] Comment on above: Performed By: #### C BC, ADIFF, ANEU, CMP, GFR, APTT, PRO, ABORH, ANTIS ####[place] [address] Creatinine 0.58 mg/dL Normal 0.50-1.20 [facility] ([place] Comment on above: Performed By: #### C BC, ADIFF, ANEU, CMP, GFR, APTT, PRO, ABORH, ANTIS ####[place] [address] Electrolyte Balance 6.0 mEq/L Normal 4.0-15.0 [facility] ([place] Comment on above: Performed By: #### C BC, ADIFF, ANEU, CMP, GFR, APTT, PRO, ABORH, ANTIS ####[place] [address] Glucose mass conc 86 mg/dL Normal 70-110 [facility] [place] Comment on above: Performed By: #### C BC, ADIFF, ANEU, CMP, GFR, APTT, PRO, ABORH, ANTIS ####[place] [address] Sodium 142 mmol/L Normal 136-145 [facility] [place] Comment on above: Performed By: #### C BC, ADIFF, ANEU, CMP, GFR, APTT, PRO, ABORH, ANTIS ####[place] [address] Urea nitrogen 9.0 mg/dL Normal 8.0-22.0 [facility] [place] Comment on above: Performed By: #### C BC, ADIFF, ANEU, CMP, GFR, APTT, PRO, ABORH, ANTIS ####[place] [address] CBCon 09-21-2017 Erythrocyte distribution width Auto Ratio (RBC) 12.6 % Normal 11.5-15.5 [facility] ([place] Comment on above: Performed By: #### C BC, ADIFF, ANEU, CMP, GFR, APTT, PRO, ABORH, ANTIS ####[place] [address] Erythrocytes (RBC) 3.22 10 6/mcL Low 4.10-5.30 [facility] ([place]) Comment on above: Performed By: #### C BC, ADIFF, ANEU, CMP, GFR, APTT, PRO, ABORH, ANTIS ####[place] [address] Hematocrit (HCT) 28.0 % Low 34.0-46.0 [facility] [place] Comment on above: Performed By: #### C BC, ADIFF, ANEU, CMP, GFR, APTT, PRO, ABORH, ANTIS ####[place] [address] Hemoglobin mass conc (Bld) 9.6 G/dL Low 12.0-16.0 [facility] [place] Comment on above: Performed By: #### C BC, ADIFF, ANEU, CMP, GFR, APTT, PRO, ABORH, ANTIS ####[place] [address] MCH 29.7 pg Normal 27.0-33.0 [facility] ([place] Comment on above: Performed By: #### C BC, ADIFF, ANEU, CMP, GFR, APTT, PRO, ABORH, ANTIS ####[place] [address] MCHC mass conc (RBC) 34.2 G/dL Normal 32.0-36.0 [facility] [place] Comment on above: Performed By: #### C BC, ADIFF, ANEU, CMP, GFR, APTT, PRO, ABORH, ANTIS ####[place] [address] MCV 87.0 fL Normal 80.0-99.0 [facility] ([place] Comment on above: Performed By: #### C BC, ADIFF, ANEU, CMP, GFR, APTT, PRO, ABORH, ANTIS ####[address] [address] Platelet mean volume (PMV) 10.7 fL High 6.6-10.5 [facility] ([place] Comment on above: Performed By: #### C BC, ADIFF, ANEU, CMP, GFR, APTT, PRO, ABORH, ANTIS ####[address] [address] Platelets 114 10 3/mcL Low 150-450 [facility] [place] Comment on above: Performed By: #### C BC, ADIFF, ANEU, CMP, GFR, APTT, PRO, ABORH, ANTIS ####[address] [address] WBC (Leukocytes) 7.30 10 3/mcL Normal 4.50-10.80 [facility] ([place]) Comment on above: Performed By: #### C BC, ADIFF, ANEU, CMP, GFR, APTT, PRO, ABORH, ANTIS ####[address] [address] [address] ANGIOGRAPHY ABD AORTA + I LIOFEMORALon 09-21-2017 CT ANGIOGRAPHY ABD AORTA + ILIOFEMORAL ORIGINALCT ANGIOGRAPHY ABD AORTA + ILIOFEMORAL CLINICAL INDICATION: blunt aortic trauma COMPARISON: CT abdomen pelvis study contrast only 09/18/2017 TECHNIQUE: Multiplanar and 3D reconstructed images were generated, reviewed and manipulated on a separate workstation. This exam was performed according to our departmental dose optimization program, and includes the following measures where applicable: automated exposure control, adjustment of the mAs and/or kVp according to patient size and/or exam, and an iterative reconstruction algorithm. FINDINGS: NONENHANCED CT: There is interval development of bilateral pleural effusions with adjacent atelectasis/consolidation , right greater than left. There are postsurgical changes of a cholecystectomy. No significant atherosclerotic calcifications of the abdominal aorta or the visceral arteries are seen. CONTRAST-ENHANCED CT: VASCULAR: Aortic diameter by level:Celiac: 2.1 x 2.0 cmSMA: 1.9 x 1.7 cmRight RA: 1.6 x 1.5 cmLeft RA: 1.7 x 1.4 cmThere is no significant atherosclerotic disease of the abdominal aorta. The abdominal aorta is a single lumen vessel without any active contrast extravasation or evidence of dissection. Celiac: Origin patent.SMA: Origin patent.SATISH: Origin patent.RIGHT renal artery: Origin patent. Single renal artery.LEFT renal artery: Origin patent. Single renal artery. Caudad most renal artery is left. RIGHT: The AFTAB measures 1.0 x 0.8 cm (image 137 series 301). The AFTAB, EIA, CASINO ACCOUNTANT, SFA and profunda are widely patent without significant atherosclerotic disease. LEFT: The AFTAB measures approximately 0.8 x 0.8 cm (image 137 series 301). The AFTAB, EIA, CASINO ACCOUNTANT, SFA and profunda are widely patent without significant atherosclerotic disease. NONVASCULAR: Visualized lung bases are described above. Visualized liver, spleen, adrenal glands, and pancreas are unremarkable. Kidneys enhance symmetrically. Urinary bladder is unremarkable. The uterus has been surgically removed. There are no adnexal masses. No free fluid. No dilated bowel loop. No abdominal or pelvic adenopathy. No suspicious osseous lesion. IMPRESSION: 1. 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 The aorta is a single lumen vessel without active contrast extravasation.2. Interval development of bilateral pleural effusions with adjacent atelectasis/consolidation , right greater than left. I have personally reviewed the images of this examination and agree with the resident's findings and interpretation. Interpreted By: Carolyn Garciareliminary Report By: Chente Ratliff MDElectronically Signed By: Carolyn Garcia MD Dictated Date: 09/21/2017 10:34:20 AM Prelim Date: 09/21/2017 1:21:49 PM Sign Date: 09/21/2017 4:23:06 PM [facility] Intraop Recordon Main OR Intraop Record Normal [facility] Orthopedic Progress Noteon 0 09-21-2017 Orthopedic Progress Note Normal [facility] Progress Noteon 09-21-2017 Progress Note Normal [facility] .Auto Diffon 09-20-2017 Basophils Auto #/vol (Bld) 0.00 10 3/mcL Normal 0.00-0.27 [facility] [place] Comment on above: Performed By: #### C BC, ADIFF, ANEU, CMP, GFR, APTT, PRO, ABORH, ANTIS ####[address] [address] Basophils/100 WBC Auto (Bld) 0.5 % Normal 0.0-2.5 [facility] ([place] Comment on above: Performed By: #### C BC, ADIFF, ANEU, CMP, GFR, APTT, PRO, ABORH, ANTIS ####[address] [address] Eosinophils 0.00 10 3/mcL Normal 0.00-0.65 [facility] ([place] Comment on above: Performed By: #### C BC, ADIFF, ANEU, CMP, GFR, APTT, PRO, ABORH, ANTIS ####[address] [address] Eosinophils/100 leukocytes 0.4 % Normal 0.0-6.0 [facility] [place] Comment on above: Performed By: #### C BC, ADIFF, ANEU, CMP, GFR, APTT, PRO, ABORH, ANTIS ####[address] [address] Lymphocytes 1.70 10 3/mcL Normal 0.90-4.32 [facility] ([place] Comment on above: Performed By: #### C BC, ADIFF, ANEU, CMP, GFR, APTT, PRO, ABORH, ANTIS ####[address] [address] Lymphocytes/100 leukocytes 19.8 % Low 20.0-40.0 [facility] [place] Comment on above: Performed By: #### C BC, ADIFF, ANEU, CMP, GFR, APTT, PRO, ABORH, ANTIS ####[address] [address] Monocytes 0.90 10 3/mcL Normal 0.09-1.40 [facility] ([place] Comment on above: Performed By: #### C BC, ADIFF, ANEU, CMP, GFR, APTT, PRO, ABORH, ANTIS ####[address] [address] Monocytes/100 leukocytes 10.6 % Normal 2.0-13.0 [facility] [place] Comment on above: Performed By: #### C BC, ADIFF, ANEU, CMP, GFR, APTT, PRO, ABORH, ANTIS ####[address] [address] Neutrophils/100 WBC Auto (Bld) 68.7 % Normal 50.0-75.0 [facility] [place] Comment on above: Performed By: #### C BC, ADIFF, ANEU, CMP, GFR, APTT, PRO, ABORH, ANTIS ####[address] [address] .GFRon 09-20-2017 eGFR (non-black) mL/min/{1.73_m2} Normal [facility] ([place]) Comment on above: Result Comment: GFR Population mean for , Non- Americans Ages 20-29 = 116 mL/min/1.73 sq.m. Ages 30-39 = 107 mL/min/1.73 sq.m. Ages 40-49 = 99 mL/min/1.73 sq.m. Ages 50-59 = 93 mL/min/1.73 sq.m. Ages 60-69 = 85 mL/min/1.73 sq.m. Ages 70+ = 75 mL/min/1.73 sq.m.Chronic Kidney Disease: Less than 60 mL/min/1.73 square metersEnd Stage Renal Disease: Less than 15 mL/min/1.73 square meters Performed By: #### C BC, ADIFF, ANEU, CMP, GFR, APTT, PRO, ABORH, ANTIS ####[address] [address] .NEUABSon 09-20-2017 Neutrophils 6.00 10 3/mcL Normal 2.25-8.10 [facility] [place] Comment on above: Performed By: #### C BC, ADIFF, ANEU, CMP, GFR, APTT, PRO, ABORH, ANTIS ####[address] [address] BMPon 09-20-2017 BUN/Creatinine Ratio 14.9 ratio Normal 10.0-22.0 [facility] ([place] Comment on above: Performed By: #### C BC, ADIFF, ANEU, CMP, GFR, APTT, PRO, ABORH, ANTIS ####[place] [address] Creatinine 0.67 mg/dL Normal 0.50-1.20 [facility] ([place] Comment on above: Performed By: #### C BC, ADIFF, ANEU, CMP, GFR, APTT, PRO, ABORH, ANTIS ####[place] [address] Glucose mass conc 93 mg/dL Normal 70-110 [facility] ([place] Comment on above: Performed By: #### C BC, ADIFF, ANEU, CMP, GFR, APTT, PRO, ABORH, ANTIS ####[place] [address] Calcium 8.2 mg/dL Low 8.4-10.1 [facility] ([place] Comment on above: Performed By: #### C BC, ADIFF, ANEU, CMP, GFR, APTT, PRO, ABORH, ANTIS ####[place] [address] Chloride 105 mmol/L Normal 98-110 [facility] ([place] Comment on above: Performed By: #### C BC, ADIFF, ANEU, CMP, GFR, APTT, PRO, ABORH, ANTIS ####[place] [address] CO2 31 mmol/L Normal 22-32 [facility] ([place] Comment on above: Performed By: #### C BC, ADIFF, ANEU, CMP, GFR, APTT, PRO, ABORH, ANTIS ####[place] [address] Electrolyte Balance 6.0 mEq/L Normal 4.0-15.0 [facility] ([place]) Comment on above: Performed By: #### C BC, ADIFF, ANEU, CMP, GFR, APTT, PRO, ABORH, ANTIS ####[place] [address] Potassium molar conc 4.1 mmol/L Normal 3.5-5.0 [facility] ([place] Comment on above: Performed By: #### C BC, ADIFF, ANEU, CMP, GFR, APTT, PRO, ABORH, ANTIS ####[place] [address] Sodium 142 mmol/L Normal 136-145 [facility] ([place] Comment on above: Performed By: #### C BC, ADIFF, ANEU, CMP, GFR, APTT, PRO, ABORH, ANTIS ####[place] [address] Urea nitrogen 10.0 mg/dL Normal 8.0-22.0 [facility] ([place] Comment on above: Performed By: #### C BC, ADIFF, ANEU, CMP, GFR, APTT, PRO, ABORH, ANTIS ####[place] [address] CBCon 09-20-2017 Erythrocyte distribution width Auto Ratio (RBC) 12.4 % Normal 11.5-15.5 [facility] ([place] Comment on above: Performed By: #### C BC, ADIFF, ANEU, CMP, GFR, APTT, PRO, ABORH, ANTIS ####[place] [address] Erythrocytes (RBC) 3.43 10 6/mcL Low 4.10-5.30 [facility] ([place]) Comment on above: Performed By: #### C BC, ADIFF, ANEU, CMP, GFR, APTT, PRO, ABORH, ANTIS ####[place] [address] Hematocrit (HCT) 30.1 % Low 34.0-46.0 [facility] ([place] Comment on above: Performed By: #### C BC, ADIFF, ANEU, CMP, GFR, APTT, PRO, ABORH, ANTIS ####[place] [address] Hemoglobin mass conc (Bld) 10.2 G/dL Low 12.0-16.0 [facility] ([place] Comment on above: Performed By: #### C BC, ADIFF, ANEU, CMP, GFR, APTT, PRO, ABORH, ANTIS ####[place] [address] MCH 29.8 pg Normal 27.0-33.0 [facility] ([place] Comment on above: Performed By: #### C BC, ADIFF, ANEU, CMP, GFR, APTT, PRO, ABORH, ANTIS ####[place] [address] MCHC mass conc (RBC) 34.0 G/dL Normal 32.0-36.0 [facility] ([place]) Comment on above: Performed By: #### C BC, ADIFF, ANEU, CMP, GFR, APTT, PRO, ABORH, ANTIS ####[place] [address] MCV 87.8 fL Normal 80.0-99.0 [facility] ([place] Comment on above: Performed By: #### C BC, ADIFF, ANEU, CMP, GFR, APTT, PRO, ABORH, ANTIS ####[place] [address] Platelet mean volume (PMV) 10.6 fL High 6.6-10.5 [facility] ([place] Comment on above: Performed By: #### C BC, ADIFF, ANEU, CMP, GFR, APTT, PRO, ABORH, ANTIS ####[place] [address] Platelets 132 10 3/mcL Low 150-450 [facility] ([place] Comment on above: Performed By: #### C BC, ADIFF, ANEU, CMP, GFR, APTT, PRO, ABORH, ANTIS ####[place] [address] WBC (Leukocytes) 8.70 10 3/mcL Normal 4.50-10.80 [facility] ([place]) Comment on above: Performed By: #### C BC, ADIFF, ANEU, CMP, GFR, APTT, PRO, ABORH, ANTIS ####[place] [address] Orthopedic Progress Noteon 0 09-20-2017 Orthopedic Progress Note Normal [facility] ([place]) Surgical Progress Noteon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
[2025-07-20 10:09] LABS: Hematocrit 44.6 % (37-47); Hemoglobin 14.6 g/dL (12.0-15.0); Immature Granulocytes Count 0.030 X10^3/uL (0.0-0.0); Mean Corp Hgb Conc 32.7 g/dL (32-36); Mean Corpuscular Volume 89.7 fL (81-99); Mean Platelet Vol. 12.7 fl (6.2-12.0); NRBC Flagged by Analyzer 0 % (0-5); Platelet Count 188 K/mm3 (150-450); RBC Distribution Width CV 11.9 % (11.6-14.6); RBC Distribution Width SD 38.5 fl (35.1-43.9); Red Blood Count 4.97 M/mm3 (4.2-5.4); White Blood Count 5.3 K/mm3 (4.4-11.0)
[2025-07-20 10:36] LABS: AST(SGOT) 28 U/L (<=31); Alanine Aminotransfer ALT/SGPT 17 U/L (<=34); Albumin, Serum 4.0 g/dL (3.4-4.8); Alkaline Phosphatase 65 U/L (35-104); Anion Gap 10 (5-15); BUN 15 mg/dL (4-19); BUN/Creat Ratio 18.7 RATIO (10-20); Calcium,Total 9.3 mg/dL (7.6-11.0); Carbon Dioxide 27.0 mmol/L (21.0-32.0); Chloride 106 mmol/L (98-108); Globulin 2.8 g/dL (2.2-4.2); Glucose 100 mg/dL (70-99); Potassium 4.1 mmol/L (3.3-5.1)
[2025-07-20 10:43] LABS: Valproic Acid (Depakene) Level 76 ug/mL (50-100)
== END | disposition home or self-care (01) ==
LOC: MFPLAB 08:05
PROVIDERS: PCP Family Medicine; Visit Provider Psychiatry & Neurology Neurology
DX: G40.909 Epilepsy, unspecified, not intractable, without status epilepticus (principal)
CPT/HCPCS: 36415; 80053; 80164; 85025